=== PATIENT | female | born 1950 | race Caucasian/White ===

== ENCOUNTER 2018-11-07 08:11 | Inpatient (IN) ==
[2018-11-07] MEDS ORDERED: ONDANSETRON HCL/PF 2 MG/ML VIAL IV ONE ×2 (08:41→09:30)
--- NOTE | 2018-11-07 08:42 | ERNOTE ---
Abdominal HPI - General Chief Complaint: Abdominal Pain Time Seen by Provider: 11/07/18 08:28 Source: patient Exam Limitations: no limitations - Immun/Allergies/Home Medications Immunizatons: IMMUNIZATION HX Immunizations Up to Date Yes History of Influenza Vaccine No Hx Pneumococcal Vaccination No Allergies/Adverse Reactions: Allergies No Known Allergies Allergy (Verified 11/07/18 08:24) Home Medications: HOME MEDICATIONS Aspirin [Aspirin Enteric Coated] 81 mg PO DAILY 10/25/15 [Last Taken 03/17/18] Calcium Carbonate/Vitamin D3 [Calcium 600 + Vit D 400 Tablet] 1 ea PO DAILY 10/25/15 [Last Taken 03/17/18] Metoprolol Tartrate [Lopressor] 100 mg PO BID 10/25/15 [Last Taken 03/18/18] Multivitamins [Multivitamin Ki] 1 cap PO DAILY 10/25/15 [Last Taken 03/17/18] [place]-3 Fatty Acids [Fish Oil] 500 mg PO DAILY 10/25/15 [Last Taken 03/17/18] Pravastatin Sodium [Pravachol] 80 mg PO DAILY 10/25/15 [Last Taken 03/17/18] Ibuprofen [Motrin] 600 mg PO Q8H PRN #30 tab 03/18/18 [Last Taken Unknown] Prochlorperazine [Compazine] 25 mg RC Q6H PRN #12 supp.rect 06/12/18 [Last Taken Unknown] amlodipine 5 mg tablet 5 mg PO DAILY #90 tab 08/06/18 [Last Taken Unknown] duloxetine 30 mg capsule,delayed release 30 mg PO DAILY #90 cap 08/06/18 [Last Taken Unknown] irbesartan 300 mg tablet 300 mg PO DAILY #90 tab 08/06/18 [Last Taken Unknown] ranitidine 150 mg tablet 150 mg PO BID #180 tab 08/13/18 [Last Taken Unknown] - History of Present Illness Narrative: Patient woke up around 2 AM to urinate and also had a bowel movement after she got up to wash her hands she began to have a sharp pain in her lower abdomen and right lower quadrant. She has some nausea but has not vomited. She has had multiple issues with her abdomen including some bowel damage during laparoscopic cholecystectomy and subsequent short segment bowel resection. She has multiple hernias that are in their usual state without increased tenderness or firmness. Timing: constant Quality: sharpness Activities at Onset: none Modifying Factors - (Improves): Present: sitting up Modifying Factors - (Worsens): Present: lying down, movement Associated Symptoms: Absent: diarrhea-gross blood, vomiting Prior Abdominal Problems: Present: similar symptoms - with her bowel injury after jonathon Review of Systems - Review of Systems Constitutional: Absent: recent illness, fever, chills ENT: Absent: nose congestion, nasal drainage Respiratory: Absent: shortness of breath Cardiology: Absent: chest pain Gastrointestinal/Abdominal: Present: See HPI, nausea. Absent: vomiting, diarrhea, constipation Genitourinary: Absent: frequency, pain, dysuria Musculoskeletal: Absent: back pain, muscle pain Skin: Absent: rash Endocrine: Absent: excessive sweating Medical History (Updated 06/12/18 @ 17:42 by Reny Rosado NP) Fracture Onset Date: ~2012 right wrist fracture GERD (gastroesophageal reflux disease) Hypertension Joint pain Knee pain bilateral Thrombosed external hemorrhoid varicose veins Diverticulosis Onset Date: ~10/31/15 Breast cancer Onset Date: ~2009 chemo and radiation DVT (deep venous thrombosis) Onset Date: ~2009 due to Tamoxifen Surgical History: Surgical History (Updated 03/25/18 @ 13:16 by Elisa Mancia RN) History of hysteroscopy Onset Date: ~03/18/18 History of lymph node dissection of right axilla History of tubal ligation Onset Date: ~1993 H/O breast surgery Onset Date: ~11/03/09 double mastectomy H/O colonoscopy Onset Date: ~10/31/152003 & 10/30/18. 04-negative' 16-thrombosed external hemorrhoid, diverticulosis-recheck in 10 years History of appendectomy Onset Date: ~1964 History of exploratory laparotomy Onset Date: ~2013 due to nicked jejunum from lap jonathon History of skin graft Onset Date: ~02/2010 over right breast incision Hx laparoscopic cholecystectomy Onset Date: ~09/2013 Family History: Family History (Updated 02/28/18 @ 09:41 by Elisa Mancia RN) Mother Hypertension H/O heart bypass surgery Father Cancer kidney Social History: Preferred Language Korean Smoking Status Never smoker Have you smoked in the past 12 No months Abuse History No History of abuse Psych History Hx of Anxiety,Hx of Depression,Currently on Meds Alcohol Use none Drug Use none (Last Updated 04/15/18 @ 16:40 by Jayne Toscano DO) No Social History Section defined Physical Exam - Physical Exam General Appearance: Present: wd/wn, alert, mild distress Head Exam: Present: normal inspection, no evidence of injury Neck: Present: normal inspection, nontender, supple Respiratory: Present: no respiratory distress, no accessory muscle use Gastrointestinal/Abdominal: Present: normal bowel sounds, tenderness - Diffuse but more tender in the lower midline and right lower quadrant, distended - With multiple hernias that patient states are unchanged. Absent: guarding, rebound Back Exam: Present: normal inspection, normal range of motion, no vertebral tenderness Extremity Exam: Present: normal inspection, normal range of motion, no edema Neurological Exam: Present: alert, oriented, normal mood/affect, no motor/sensory deficits Skin Exam: Present: normal color, warm/dry Lymphatic Exam: Present: no adenopathy Progress - Results and Orders Patient's Lab Results:: I have reviewed the patient's lab results. Results and Orders: Laboratory Tests 11/07/18 11/07/18 08:51 08:51 WBC 8.6 Hgb 15.8 Plt Count 253 Sodium 141 Potassium 4.2 D BUN 19 Creatinine 0.76 BUN/Creatinine Ratio 25.0 H Random Glucose 139 H Total Bilirubin 1.1 AST 22 ALT 32 - Vital Signs Patient's Vital Signs:: I have reviewed the patient's vital signs. Vital Signs: Vital Signs 11/07/18 08:21 Temperature 36.7 C Pulse Rate 62 Respiratory Rate 16 Blood Pressure 188/93 H O2 Sat by Pulse Oximetry 97 - X-Ray X-Ray #1 X-Ray: abdomen Interpretation: Reviewed by me X-ray Comments: IMPRESSION: Abnormal bowel gas pattern suggestive of small bowel obstruction. Electronically signed by Carolyn Silva M.D. - Progress/Reassessment Chief Complaint: Abdominal Pain Progress:: Improved - Transfer of Care Physician Sign Out: Rohit Dalton Receiving Physician: Connie Domínguez Pending Results: CT/MRI results Expected Disposition: Admit Departure Clinical Impression: Small bowel obstruction - Departure Disposition: Still a patient Condition: Stable Referrals: Jayne Toscano DO [Primary Care Provider] -
[2018-11-07 09:00] LABS: Hematocrit 48.3 % (37.0-47.0); Hemoglobin 15.8 gm/dL (12.5-16.0); Mean Cell Volume 95.1 fl (78-100); Mean Corpuscular Hemoglobin 31.1 pg (27-31); Mean Corpuscular Hgb Conc 32.7 g/dl (32-36); Mean Platelet Volume 9.9 fl (8-12.5); Neutrophil # 6.4 K/mm3 (1.3-6.0); Neutrophil % 74.7 % (42-75.0); Platelet Count 253 K/mm3 (150-450); Red Blood Count 5.08 M/mm3 (4.2-5.4); Red Cell Distribution Width 12.8 % (11.5-14.0); White Blood Count 8.6 K/mm3 (4.0-10.5)
[2018-11-07] MEDS ORDERED: NALBUPHINE HCL 20 MG/ML AMPUL IV ONE (09:06)
[2018-11-07 09:13] LABS: Albumin * 4.1 gm/dl (3.4-5.0); Anion Gap 14.3 mmol/L (6.8-13.8); Bilirubin, Total 1.1 mg/dL (0.0-1.1); Ca. Corrected For Albumin 9.2 mg/dL (8.4-10.2); Calcium * 9.6 mg/dL (7.9-10.9); Carbon Dioxide 28.9 mmol/L (24-32.6); Potassium 4.2 mmol/L (3.4-4.6); Total Protein 8.1 gm/dL (6.2-8.2)
[2018-11-07] MEDS ORDERED: DIATRIZOATE MEGLUMINE, SODIUM 30 ML BTL PO ONE (10:21)
[2018-11-07] MEDS ORDERED: PROCHLORPERAZINE EDISYLATE 5 MG/ML VIAL IV ONE (10:29)
[2018-11-07] MEDS ORDERED: HYDROmorphone HCL 1 MG/ML DISP.SYRIN IV ONE (14:32)
[2018-11-07] MEDS ORDERED: ENOXAPARIN SODIUM 100 MG/ML SYRG SC ONE (14:47)
[2018-11-07] MEDS ORDERED: ENOXAPARIN SODIUM 30 MG/0.3 ML SYRG SC ONE (14:48)
[2018-11-07] MEDS ORDERED: POTASSIUM CHLORIDE 20 MEQ in NORMAL SALINE 1,000 ML IV SCH (15:00)
--- NOTE | 2018-11-07 15:40 | HP ---
Chief Complaint - Chief Complaint Date of Service: 11/07/18 Time of Service: 15:00 Chief Complaint: Abdominal pain x1 day History of Present Illness: This is a 68-year-old female with a past medical history of breast cancer status post bilateral mastectomy, chemo and radiation, diverticulosis, DVT, GERD, hypertension presents with a 1 day history of diffuse abdominal pain. She states that she woke up around 2:00 this morning to use the bathroom when she began to experience severe abdominal pain. She rates the pain as a 6-8 out of 10, sharp and constant. Pain is better with the IV Dilaudid she received in the ER. Denies fevers, chills or any other symptoms. CT abdomen pelvis was positive for proximal small bowel obstruction likely caused by her ventral hernia, multiple ventral hernias, possible right lower lobe pulmonary embolism. Medical History (Updated 11/07/18 @ 15:40 by Demetria Magana MD) Fracture Onset Date: ~2012 right wrist fracture GERD (gastroesophageal reflux disease) Hypertension Joint pain Knee pain bilateral Thrombosed external hemorrhoid varicose veins Diverticulosis Onset Date: ~10/31/15 Breast cancer Onset Date: ~2009 chemo and radiation DVT (deep venous thrombosis) Onset Date: ~2009 due to Tamoxifen Surgical History: Surgical History (Updated 11/07/18 @ 15:40 by Demetria Magana MD) History of hysteroscopy Onset Date: ~03/18/18 History of lymph node dissection of right axilla History of tubal ligation Onset Date: ~1993 H/O breast surgery Onset Date: ~11/03/09 double mastectomy H/O colonoscopy Onset Date: ~10/31/152003 & 10/30/18. 04-negative' 16-thrombosed external hemorrhoid, diverticulosis-recheck in 10 years History of appendectomy Onset Date: ~1964 History of exploratory laparotomy Onset Date: ~2013 due to nicked jejunum from lap jonathon History of skin graft Onset Date: ~02/2010 over right breast incision Hx laparoscopic cholecystectomy Onset Date: ~09/2013 Family History: Family History (Updated 02/28/18 @ 09:41 by Elisa Mancia RN) Mother Hypertension H/O heart bypass surgery Father Cancer kidney Social History: Preferred Language Upper Sorbian Smoking Status Never smoker Have you smoked in the past 12 No months Abuse History No History of abuse Psych History Hx of Anxiety,Hx of Depression,Currently on Meds Alcohol Use none Drug Use none (Last Updated 04/15/18 @ 16:40 by Jayne Toscano DO) No Social History Section defined Review Of Systems (GEN) - Review of Systems Generalized/Overall Review: Absent: Chills, Fever Respiratory: Absent: Shortness of Breath Cardiac: Absent: Chest Pain Abdominal: Present: Abdominal Pain Misc: All systems neg except as marked Immunizations: IMMUNIZATION HX Immunizations Up to Date Yes History of Influenza Vaccine No Hx Pneumococcal Vaccination No Allergies/Adverse Reactions: Allergies Allergy/AdvReac Type Severity Reaction Status Date / Time No Known Allergies Allergy Verified 11/07/18 08:24 Home Medications: HOME MEDICATIONS Aspirin [Aspirin Enteric Coated] 81 mg PO DAILY 10/25/15 [Last Taken 03/17/18] Calcium Carbonate/Vitamin D3 [Calcium 600 + Vit D 400 Tablet] 1 ea PO DAILY 10/25/15 [Last Taken 03/17/18] Multivitamins [Multivitamin Ki] 1 cap PO DAILY 10/25/15 [Last Taken 03/17/18] [place]-3 Fatty Acids [Fish Oil] 500 mg PO DAILY 10/25/15 [Last Taken 03/17/18] Ibuprofen [Motrin] 600 mg PO Q8H PRN #30 tab 03/18/18 [Last Taken Unknown] Prochlorperazine [Compazine] 25 mg RC Q6H PRN #12 supp.rect 06/12/18 [Last Taken Unknown] amlodipine 5 mg tablet 5 mg PO DAILY #90 tab 11/07/18 [Last Taken Unknown] duloxetine 30 mg capsule,delayed release 30 mg PO DAILY #90 cap 11/07/18 [Last Taken Unknown] irbesartan 300 mg tablet 300 mg PO DAILY #90 tab 11/07/18 [Last Taken Unknown] metoprolol tartrate 100 mg tablet 100 mg PO BID #180 tab 11/07/18 [Last Taken Unknown] pravastatin 80 mg tablet 80 mg PO DAILY #90 tab 11/07/18 [Last Taken Unknown] ranitidine 150 mg tablet 150 mg PO BID #180 tab 11/07/18 [Last Taken Unknown] Exam - Exam Vital Signs: Vital Signs - Last Taken Temp 36.7 C 11/07/18 08:21 Pulse 53 L 11/07/18 12:45 Resp 20 11/07/18 12:45 BP 165/70 H 11/07/18 12:45 Pulse Ox 95 11/07/18 12:45 Constitutional: Present: Alert, Oriented x3, Cooperative, Well developed, Well nourished, Elderly, Obese ENT Exam: Present: hearing grossly normal, moist mucous membranes Eye Exam: bilateral eye: PERRL Neck: Present: supple, trachea midline. Absent: lymphadenopathy (R), lymphadenopathy (L) Back Exam: Present: normal inspection, no CVA tenderness Respiratory: Present: lungs clear, no accessory muscle use, No wheezing. Absent: crackles, rhonchi Cardiovascular/Chest: Present: normal peripheral pulses, regular rate, rhythm, no murmur Peripheral Pulses: dorsalis-pedis (R): 1+, dorsalis-pedis (L): 1+ Abdomen: Present: soft, nontender, hypoactive Extremity: Present: pedal edema - Bilateral 1+ pitting Skin Exam: Present: normal color, warm/dry Neurologic: Present: alert, normal mood/affect Appearance: Present: appropriate appearance Eye contact: Present: cooperative Thoughts: Present: normal thought pattern, normal mood /affect Diagnostic Studies: Abnormal Lab Results 11/07/18 11/07/18 Range/Units 08:51 08:51 Hct 48.3 H (37.0-47.0) % MCH 31.1 H (27-31) pg Immature Gran % (Auto) 0.70 H (0.001-0.429) % Immature Gran # (Auto) 0.06 H (0.000-0.0310) K/mm3 Lymphocytes % 13.1 L (20-51) % Neutrophils # 6.4 H (1.3-6.0) K/mm3 Lymphocytes # 1.12 L (1.5-3.5) k/mm3 Anion Gap 14.3 H (6.8-13.8) mmol/L BUN/Creatinine Ratio 25.0 H (9.0-21.6) Random Glucose 139 H (70-110) mg/dL Laboratory Results WBC 8.6 K/mm3 (4.0-10.5) 11/07/18 08:51 RBC 5.08 M/mm3 (4.2-5.4) 11/07/18 08:51 Hgb 15.8 gm/dL (12.5-16.0) 11/07/18 08:51 Hct 48.3 % (37.0-47.0) H 11/07/18 08:51 MCV 95.1 fl (78-100) 11/07/18 08:51 MCH 31.1 pg (27-31) H 11/07/18 08:51 MCHC 32.7 g/dl (32-36) 11/07/18 08:51 RDW 12.8 % (11.5-14.0) 11/07/18 08:51 Plt Count 253 K/mm3 (150-450) 11/07/18 08:51 MPV 9.9 fl (8-12.5) 11/07/18 08:51 Immature Gran % (Auto) 0.70 % (0.001-0.429) H 11/07/18 08:51 Immature Gran # (Auto) 0.06 K/mm3 (0.000-0.0310) H 11/07/18 08:51 74.7 % (42-75.0) 11/07/18 08:51 13.1 % (20-51) L 11/07/18 08:51 8.7 % (0.0-9) 11/07/18 08:51 2.1 % (0.0-3.0) 11/07/18 08:51 0.7 % (0.0-1.0) 11/07/18 08:51 Nucleated RBC % 0.0 k/mm3 (0-1) 11/07/18 08:51 6.4 K/mm3 (1.3-6.0) H 11/07/18 08:51 1.12 k/mm3 (1.5-3.5) L 11/07/18 08:51 0.7 k/mm3 (0.0-1.0) 11/07/18 08:51 0.2 k/mm3 (0.0-0.7) 11/07/18 08:51 Absolute Basophils 0.1 k/mm3 (0.0-0.1) 11/07/18 08:51 Sodium 141 mmol/L (132-142) 11/07/18 08:51 142 mmol/L (130-142) 11/07/18 08:51 Potassium 4.2 mmol/L (3.4-4.6) D 11/07/18 08:51 Chloride 102 mmol/L (97-106) 11/07/18 08:51 Carbon Dioxide 28.9 mmol/L (24-32.6) 11/07/18 08:51 14.3 mmol/L (6.8-13.8) H 11/07/18 08:51 BUN 19 mg/dL (3-23) 11/07/18 08:51 0.76 mg/dL (0.4-1.4) 11/07/18 08:51 Est GFR (Non-Af Amer) 80 mL/min (60-130) 11/07/18 08:51 25.0 (9.0-21.6) H 11/07/18 08:51 139 mg/dL (70-110) H 11/07/18 08:51 Calcium 9.6 mg/dL (7.9-10.9) 11/07/18 08:51 Calcium Adj for Albumin 9.2 mg/dL (8.4-10.2) 11/07/18 08:51 1.1 mg/dL (0.0-1.1) 11/07/18 08:51 AST 22 U/L (0-48) 11/07/18 08:51 ALT 32 U/L (19-67) 11/07/18 08:51 91 U/L (50-170) 11/07/18 08:51 8.1 gm/dL (6.2-8.2) 11/07/18 08:51 4.1 gm/dl (3.4-5.0) 11/07/18 08:51 Amylase 37 U/L (25-115) 11/07/18 08:51 116 U/L (73-393) 11/07/18 08:51 Assessment/Plan - Narrative Narrative: This is a 68-year-old female with a past medical history of breast cancer status post bilateral mastectomy, chemo and radiation, diverticulosis, DVT, GERD, hypertension presents with a 1 day history of diffuse abdominal pain. She states that she woke up around 2:00 this morning to use the bathroom when she began to experience severe abdominal pain. She rates the pain as a 6-8 out of 10, sharp and constant. Pain is better with the IV Dilaudid she received in the ER. Denies fevers, chills or any other symptoms. CT abdomen pelvis was positive for proximal small bowel obstruction likely caused by her ventral hernia, multiple ventral hernias, possible right lower lobe pulmonary embolism. She is being admitted for further observation and monitoring. Surgery has been consulted. She received 1 dose of Lovenox 160 mg in the emergency department. NG tube is in place. - Assessment/Plan (1) Small bowel obstruction Assessment: Surgery has been consulted. Continue with NG tube and keep n.p.o. Problem: Acute (2) Abnormal computed tomography of abdomen and pelvis Assessment: Possible pulmonary will order CT angiogram tomorrow she has radiation contrast with a CT abdomen pelvis. She is status post Lovenox 160 mg x 1 dose today. Problem: Acute (3) Hypertension Problem: Acute Qualifiers: Hypertension type: essential hypertension Qualified Code(s): I10 - Essential (primary) hypertension (4) GERD (gastroesophageal reflux disease) Problem: Acute
--- NOTE | 2018-11-07 16:18 | CONS ---
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 She has multiple chronic hernias which are reducible. She is having abdominal pain. Her last bowel movement was at [address] scan showed a possible PE. She has received a therapeutic dose of Lovenox. She is having a repeat CTA tomorrow. Her abdominal pain is periumbilical. The CT scan showed there was no bowel compromise, and possibly the hernia to the left of the umbilicus was causing the obstruction. Timing/Duration: 24 hours Severity: moderate Modifying Factors - (Worsens): Reports: eating Modifying Factors - (Improves): Reports: other - HEENT medication Associated Symptoms: loss of appetite, nausea Allergies/Adverse Reactions: Allergies No Known Allergies Allergy (Verified 11/07/18 16:21) Home Medications: Home Medications Medication Instructions Recorded Last Taken Aspirin [Aspirin Enteric Coated] 81 mg PO DAILY 10/25/15 11/07/18 08:00 Calcium Carbonate/Vitamin D3 1 ea PO DAILY 10/25/15 11/07/18 08:00 [Calcium 600 + Vit D 400 Tablet] Multivitamins [Multivitamin Ki] 1 cap PO DAILY 10/25/15 11/07/18 08:00 [place]-3 Fatty Acids [Fish Oil] 1,200 mg PO DAILY 10/25/15 11/07/18 08:00 Ibuprofen [Motrin] 600 mg PO Q8H PRN #30 tab 03/18/18 Unknown Prochlorperazine [Compazine] 25 mg RC Q6H PRN #12 supp.rect 06/12/18 Unknown Pravastatin Sodium [Pravachol] 80 mg PO HS 11/07/18 11/06/18 21:00 amlodipine 5 mg tablet 5 mg PO DAILY #90 tab 11/07/18 11/07/18 08:00 duloxetine 30 mg capsule,delayed 30 mg PO DAILY #90 cap 11/07/18 11/07/18 08:00 release irbesartan 300 mg tablet 300 mg PO DAILY #90 tab 11/07/18 11/07/18 08:00 metoprolol tartrate 100 mg tablet 100 mg PO BID #180 tab 11/07/18 11/07/18 08:00 ranitidine 150 mg tablet 150 mg PO BID #180 tab 11/07/18 11/07/18 08:00 Procedures Inspection of Lower Intestinal Tract, Via Natural or Artificial Opening Endoscopic (10/31/15) Exploratory laparotomy Cholecystectomy Skin graft Medications - Medications Current Medications: Current Medications Potassium Chloride 20 meq/ (Sodium Chloride) 1,010 mls @ 30 mls/hr IV .Q24H LANNY Stop: 12/07/18 15:01 Last Admin: 11/07/18 15:31 Dose: 30 mls/hr Documented by: Review of Systems - Review of Systems Generalized/Overall Review: Present: Malaise EENTM: Present: No Symptoms Reported Respiratory: Present: No Symptoms Reported Cardiac: Present: No Symptoms Reported Abdominal: Present: Nausea, Abdominal Pain Genitourinary: Present: No Symptoms Reported Musculoskeletal: Present: No Symptoms Reported Neurological: Present: No Symptoms Reported Skin: Present: No Symptoms Reported Endocrine: Present: No Symptoms Reported Physical Examination - Exam Vital Signs: Vital Signs - Last Taken Temp 36.7 C 11/07/18 08:21 Pulse 58 L 11/07/18 14:30 Resp 14 11/07/18 14:30 BP 171/79 H 11/07/18 14:30 Pulse Ox 95 11/07/18 14:30 O2 Oxygen Delivery Method Room Air Constitutional: Present: Alert, Oriented x3, Cooperative ENT Exam: Present: hearing grossly normal Neck: Present: supple Respiratory: Present: lungs clear, normal breath sounds, no respiratory distress Cardiovascular/Chest: Present: regular rate, rhythm Abdomen: Present: Normal bowel sounds, soft, nondistended, obese, tender, hernia - Hernias were all reducible and no erythema or skin changes /Rectal: Present: Exam deferred Extremity: Present: normal range of motion Skin Exam: Present: normal color Neurologic: Present: sand polisher II-XII nml as tested Appearance: Present: appropriate appearance, appropriate insight Eye contact: Present: cooperative, good eye contact Thoughts: Present: normal thought pattern - Results and Findings: Lab/Microbiology results last 24 hrs: Abnormal/Pending Laboratory Last 24 HRS 11/07/18 11/07/18 08:51 08:51 Hct 48.3 H MCH 31.1 H Immature Gran % (Auto) 0.70 H Immature Gran # (Auto) 0.06 H Lymphocytes % 13.1 L Neutrophils # 6.4 H Lymphocytes # 1.12 L Anion Gap 14.3 H BUN/Creatinine Ratio 25.0 H Random Glucose 139 H - Assessments/Findings (1) Abnormal computed tomography of abdomen and pelvis Problem: Acute (2) GERD (gastroesophageal reflux disease) Problem: Acute (3) Hypertension Problem: Acute Qualifiers: Hypertension type: essential hypertension Qualified Code(s): I10 - Essential (primary) hypertension (4) Small bowel obstruction Problem: Acute (5) Abdominal wall hernia Problem: Acute (6) Vomiting Problem: Acute Qualifiers: Vomiting type: unspecified Vomiting Intractability: non-intractable Nausea presence: with nausea Qualified Code(s): R11.2 - Nausea with vomiting, unspecified Plan - Plan Plan: Patient's hernia that was to the left of the umbilicus was reduced. This is the hernia that was concerning for obstruction on the CT scan. The patient has received 160 of Lovenox, she could not undergo surgery. I do not think she needs surgery at this time. She is also a poor surgical candidate with a possible PE. She just had a bowel movement this morning at 2 AM. She likely has chronic obstructions which resolved themselves based on her chronic hernias.
[2018-11-07] MEDS: NORMAL SALINE 1,000 ML IV PRN (17:52)
[2018-11-07 20:41] LABS: Urine Bilirubin Negative (NEGATIVE); Urine Ketone Negative (NEGATIVE); Urine Nitrite Negative (NEGATIVE); Urine Protein 15 mg/dL (NEGATIVE); Urine Urobilinogen Normal (NORMAL)
[2018-11-07] MEDS: HYDROmorphone HCL 1 MG/ML DISP.SYRIN IV PRN (20:51)
[2018-11-07 20:52] LABS: Urine Appearance Slightly Cloudy (CLEAR); Urine Bacteria 1+; Urine Blood 5 /ul (NEGATIVE); Urine Color Yellow; Urine RBC None Seen /hpf (0-5); Urine WBC None Seen /hpf (0-5)
[2018-11-08] MEDS: ONDANSETRON HCL/PF 2 MG/ML VIAL IV PRN ×3 (02:00→22:25)
[2018-11-08] MEDS: HYDROmorphone HCL 1 MG/ML DISP.SYRIN IV PRN ×5 (02:04→22:29)
[2018-11-08 06:01] LABS: Hematocrit 44.1 % (37.0-47.0); Hemoglobin 14.5 gm/dL (12.5-16.0); Mean Cell Volume 95.7 fl (78-100); Mean Corpuscular Hemoglobin 31.5 pg (27-31); Mean Corpuscular Hgb Conc 32.9 g/dl (32-36); Mean Platelet Volume 9.8 fl (8-12.5); Neutrophil # 11.6 K/mm3 (1.3-6.0); Neutrophil % 84.3 % (42-75.0); Platelet Count 225 K/mm3 (150-450); Red Blood Count 4.61 M/mm3 (4.2-5.4); Red Cell Distribution Width 12.9 % (11.5-14.0); White Blood Count 13.8 K/mm3 (4.0-10.5)
[2018-11-08 06:14] LABS: Albumin * 3.4 gm/dl (3.4-5.0); Anion Gap 12.4 mmol/L (6.8-13.8); BUN/Creatinine Ratio 31.6 (9.0-21.6); Bilirubin, Total 1.7 mg/dL (0.0-1.1); Ca. Corrected For Albumin 9.4 mg/dL (8.4-10.2); Calcium * 9.2 mg/dL (7.9-10.9); Carbon Dioxide 30.8 mmol/L (24-32.6); Potassium 4.2 mmol/L (3.4-4.6); Total Protein 6.7 gm/dL (6.2-8.2)
[2018-11-08] MEDS ORDERED: ENOXAPARIN SODIUM 100 MG/ML SYRG SC SCH ×2 (09:00→15:52)
--- NOTE | 2018-11-08 09:18 | PN ---
Dictated Progress Note - Date and Time Seen: Date: 11/08/18 Time: 09:15 - Progress Note Narrative: Pt still having emesis overnoc, NG not working well. Was now flushed and working better. Abd pain better after dilaudid, but overall feels the same. HavHa having flatus, no bm since yesterday. Vital Signs - Last Taken Temp 36.7 C 11/08/18 06:00 Pulse 74 11/08/18 06:00 Resp 16 11/08/18 06:00 BP 157/69 H 11/08/18 06:00 Pulse Ox 93 11/08/18 06:00 Abnormal/Pending Laboratory Last 24 HRS 11/08/18 11/08/18 11/07/18 05:55 05:55 20:38 WBC 13.8 H D Hct MCH 31.5 H Immature Gran % (Auto) Immature Gran # (Auto) 0.04 H Neutrophils % 84.3 H Lymphocytes % 7.8 L Neutrophils # 11.6 H Lymphocytes # 1.07 L BUN 25 H BUN/Creatinine Ratio 31.6 H Random Glucose 148 H Total Bilirubin 1.7 H Urine Protein 15 H Urine Blood 5 H Ur Epithelial Cells 5-10 H Urine Bacteria 1+ H 11/07/18 08:51 WBC Hct 48.3 H MCH 31.1 H Immature Gran % (Auto) 0.70 H Immature Gran # (Auto) 0.06 H Neutrophils % Lymphocytes % 13.1 L Neutrophils # 6.4 H Lymphocytes # 1.12 L BUN BUN/Creatinine Ratio Random Glucose Total Bilirubin Urine Protein Urine Blood Ur Epithelial Cells Urine Bacteria NAD non labored respirations abd, multiple hernias, reducible, no erythema, reduced hernia to left of umbilicus, and had large return of NG contents IMP: pSBO mult chronic hernias possible PE anticoagulated Plan: await CTA Cont NG until N/V resolves poor surgical candidate
--- NOTE | 2018-11-08 11:33 | PN ---
Subjective - Date and Time Seen Date: 11/08/18 Time: 09:00 Subjective Narrative: Feels better. Pain well controlled with Dilaudid. Pain currently is a 3 out of 10. She had vomiting overnight that resolved with Zofran. Objective - Review of Systems Generalized/Overall Review: Denies: Fever Respiratory: Denies: Shortness of Breath Cardiac: Denies: Chest Pain Abdominal: Reports: Nausea, Vomiting, Abdominal Pain Misc: All systems neg except as marked - Vitals Vitals: Last Vital Signs Temp 36.4 C 11/08/18 10:00 Pulse 77 11/08/18 10:00 Resp 18 11/08/18 10:00 BP 171/78 H 11/08/18 10:00 Pulse Ox 93 11/08/18 10:00 - Abnormal Lab Findings Abnormal Lab Findings: Abnormal Lab Results 11/07/18 11/08/18 11/08/18 Range/Units 20:38 05:55 05:55 WBC 13.8 H D (4.0-10.5) K/mm3 MCH 31.5 H (27-31) pg Immature Gran # (Auto) 0.04 H (0.000-0.0310) K/mm3 Neutrophils % 84.3 H (42-75.0) % Lymphocytes % 7.8 L (20-51) % Neutrophils # 11.6 H (1.3-6.0) K/mm3 Lymphocytes # 1.07 L (1.5-3.5) k/mm3 BUN 25 H (3-23) mg/dL BUN/Creatinine Ratio 31.6 H (9.0-21.6) Random Glucose 148 H (70-110) mg/dL Total Bilirubin 1.7 H (0.0-1.1) mg/dL Urine Protein 15 H (NEGATIVE) mg/dL Urine Blood 5 H (NEGATIVE) /ul Ur Epithelial Cells 5-10 H (0-5) /hpf Urine Bacteria 1+ H (NONE) - Exam Constitutional: Present: Alert, Oriented x3, Cooperative, Well developed, Well nourished, No distress ENT Exam: Present: hearing grossly normal Neck: Present: normal inspection, trachea midline. Absent: lymphadenopathy (R), lymphadenopathy (L) Respiratory: Present: lungs clear, normal breath sounds, no respiratory distress, no accessory muscle use, No wheezing. Absent: crackles, rhonchi Cardiovascular/Chest: Present: normal peripheral pulses, regular rate, rhythm, no murmur Abdomen: Present: Normal bowel sounds, soft, nontender Extremity: Present: normal inspection, no pedal edema Skin Exam: Present: normal color, warm/dry Neurologic: Present: alert, normal mood/affect Appearance: Present: appropriate appearance, appropriate insight Eye contact: Present: cooperative, good eye contact Thoughts: Present: normal thought pattern, normal mood /affect Assessment/Plan Plan Narrative: This is a 68-year-old female with a past medical history of breast cancer status post bilateral mastectomy, chemo and radiation, diverticulosis, DVT, GERD, hyper tension presents with a 1 day history of diffuse abdominal pain. CT abdomen pelvis was positive for proximal small bowel obstruction likely caused by her ventral hernia, multiple ventral hernias, possible right lower lobe pulmonary embolism. She is being admitted for further observation and monitoring. Surgery is on board. She received 1 dose of Lovenox 160 mg in the emergency department. NG tube is in place. - Problems/Diagnosis (1) Small bowel obstruction Problem: Acute Narrative: Likely secondary to her ventral hernia. Continue with NG tube until nausea and vomiting resolved per surgery's recommendations. Surgery states she is a poor surgical candidate due to her potential PE and the fact that she has already received anticoagulation. (2) Abnormal computed tomography of abdomen and pelvis Problem: Acute Narrative: He may have a pulmonary embolism. She is scheduled for a CT angio chest today continue anticoagulation with Lovenox for now. (3) Hypertension Problem: Chronic Qualifiers: Hypertension type: essential hypertension Qualified Code(s): I10 - Essential (primary) hypertension Narrative: Blood pressure is elevated. Will consider starting enalapril IV until she can tolerate oral medications (4) GERD (gastroesophageal reflux disease) Problem: Chronic
[2018-11-08] MEDS: ENALAPRILAT DIHYDRATE 1.25 MG/ML VIAL IV SCH ×3 (12:09→23:46)
[2018-11-08] MEDS: NORMAL SALINE 1,000 ML IV PRN (14:33)
[2018-11-08] MEDS ORDERED: ENOXAPARIN SODIUM 60 MG/0.6 ML SYRG SC SCH (21:00)
[2018-11-09] MEDS: HYDROmorphone HCL 1 MG/ML DISP.SYRIN IV PRN ×4 (03:18→22:43)
[2018-11-09] MEDS: ONDANSETRON HCL/PF 2 MG/ML VIAL IV PRN (04:27)
[2018-11-09] MEDS: ENALAPRILAT DIHYDRATE 1.25 MG/ML VIAL IV SCH ×3 (05:31→16:58)
[2018-11-09 06:17] LABS: Hematocrit 44.2 % (37.0-47.0); Hemoglobin 14.3 gm/dL (12.5-16.0); Mean Cell Volume 96.9 fl (78-100); Mean Corpuscular Hemoglobin 31.4 pg (27-31); Mean Corpuscular Hgb Conc 32.4 g/dl (32-36); Mean Platelet Volume 10.5 fl (8-12.5); Neutrophil # 7.6 K/mm3 (1.3-6.0); Neutrophil % 79.3 % (42-75.0); Platelet Count 172 K/mm3 (150-450); Red Blood Count 4.56 M/mm3 (4.2-5.4); Red Cell Distribution Width 13.2 % (11.5-14.0); White Blood Count 9.6 K/mm3 (4.0-10.5)
[2018-11-09 06:37] LABS: Albumin * 3.3 gm/dl (3.4-5.0); Anion Gap 12.5 mmol/L (6.8-13.8); BUN/Creatinine Ratio 34.1 (9.0-21.6); Bilirubin, Total 1.7 mg/dL (0.0-1.1); Ca. Corrected For Albumin 8.9 mg/dL (8.4-10.2); Calcium * 8.7 mg/dL (7.9-10.9); Carbon Dioxide 31.7 mmol/L (24-32.6); Potassium 4.2 mmol/L (3.4-4.6); Total Protein 6.2 gm/dL (6.2-8.2)
[2018-11-09] MEDS: ENOXAPARIN SODIUM 30 MG, ENOXAPARIN SODIUM 80 MG SC SCH ×4 (08:19→20:50)
[2018-11-09] MEDS: DEXTROSE 5%-0.5 NORMAL SALINE 1,000 ML IV PRN (09:47)
--- NOTE | 2018-11-09 10:03 | PN ---
Dictated Progress Note - Date and Time Seen: Date: 11/09/18 Time: 10:02 - Progress Note Narrative: Abd pain remains unchanged. Having flatus, no bm. Still having emesis around NG Vital Signs - Last Taken Temp 37.1 C 11/09/18 06:00 Pulse 109 H 11/09/18 06:00 Resp 20 11/09/18 06:00 BP 132/77 11/09/18 06:00 Pulse Ox 93 11/09/18 06:00 Abnormal/Pending Laboratory Last 24 HRS 11/09/18 11/09/18 05:55 05:55 MCH 31.4 H Immature Gran % (Auto) 0.50 H Immature Gran # (Auto) 0.05 H Neutrophils % 79.3 H Lymphocytes % 9.8 L Monocytes % 10.1 H Neutrophils # 7.6 H Lymphocytes # 0.94 L Sodium 145 H Plasma Sodium 146 H BUN 28 H BUN/Creatinine Ratio 34.1 H Random Glucose 150 H Total Bilirubin 1.7 H Albumin 3.3 L NAD non labored abd soft, hernia reduced, min TTP no skin changes IMP: pSBO PE mult chronic hernias Plan: added protonix cont NG AXR in am ice chips ok prn if needs surgery would tx to [facility] given PE would need multidisciplinary team
[2018-11-09] MEDS: PANTOPRAZOLE SODIUM 40 MG in NORMAL SALINE 100 ML IV SCH (10:28)
--- NOTE | 2018-11-09 14:08 | PN ---
Subjective - Date and Time Seen Date: 11/09/18 Time: 10:30 Subjective Narrative: She continues to complain of diffuse abdominal pain. At best pain is a 3 out of 10 with Dilaudid, at worst pain is 8 out of 10 when Dilaudid is wearing off. She declined a stronger dose of Dilaudid at this time. She does continue to pass a little bit of gas. She denies shortness of breath or chest pain. She did report vomiting a small amount of liquid. Objective - Review of Systems Generalized/Overall Review: Denies: Fever Respiratory: Denies: Shortness of Breath Cardiac: Denies: Chest Pain Abdominal: Reports: Vomiting, Abdominal Pain Misc: All systems neg except as marked - Vitals Vitals: Last Vital Signs Temp 36.7 C 11/09/18 10:00 Pulse 109 H 11/09/18 11:58 Resp 20 11/09/18 10:00 BP 155/72 H 11/09/18 11:58 Pulse Ox 96 11/09/18 10:00 - Abnormal Lab Findings Abnormal Lab Findings: Abnormal Lab Results 11/09/18 11/09/18 Range/Units 05:55 05:55 MCH 31.4 H (27-31) pg Immature Gran % (Auto) 0.50 H (0.001-0.429) % Immature Gran # (Auto) 0.05 H (0.000-0.0310) K/mm3 Neutrophils % 79.3 H (42-75.0) % Lymphocytes % 9.8 L (20-51) % Monocytes % 10.1 H (0.0-9) % Neutrophils # 7.6 H (1.3-6.0) K/mm3 Lymphocytes # 0.94 L (1.5-3.5) k/mm3 Sodium 145 H (132-142) mmol/L Plasma Sodium 146 H (130-142) mmol/L BUN 28 H (3-23) mg/dL BUN/Creatinine Ratio 34.1 H (9.0-21.6) Random Glucose 150 H (70-110) mg/dL Total Bilirubin 1.7 H (0.0-1.1) mg/dL Albumin 3.3 L (3.4-5.0) gm/dl - Exam Constitutional: Present: Alert, Cooperative, Well developed, Well nourished, No distress ENT Exam: Present: hearing grossly normal Neck: Present: supple, trachea midline. Absent: lymphadenopathy (R), lymphadenopathy (L) Respiratory: Present: lungs clear, normal breath sounds, no accessory muscle use, No wheezing. Absent: crackles, rhonchi Cardiovascular/Chest: Present: normal peripheral pulses, regular rate, rhythm, no edema, no murmur Abdomen: Present: Normal bowel sounds, soft, tender - Mildly tender to deep palpation, diffuse Extremity: Present: no pedal edema Skin Exam: Present: normal color, warm/dry Neurologic: Present: alert, normal mood/affect Appearance: Present: appropriate appearance, appropriate insight Eye contact: Present: cooperative, good eye contact Thoughts: Present: normal thought pattern, normal mood /affect Assessment/Plan Plan Narrative: This is a 68-year-old female with a past medical history of breast cancer status post bilateral mastectomy, chemo and radiation, diverticulosis, DVT, GERD, hypertension presents with a 1 day history of diffuse abdominal pain. CT abdomen pelvis was positive for proximal small bowel obstruction likely caused by her ventral hernia, multiple ventral hernias, possible right lower lobe pul monary embolism. She had a CT angio on November 08, 2018 that showed segmental and subsegmental right lower lobe PE, and suspected subsegmental left lower lobe PE. She is currently on Lovenox twice daily. Dr. Mcclain from general surgery is on board for comanagement. If the patient requires surgical intervention, Dr. Mcclain states she would need to be transferred to the [facility] in order to have a multidisciplinary team manage her because of her pulmonary embolism. - Problems/Diagnosis (1) Pulmonary embolism Problem: Acute Qualifiers: Pulmonary embolism type: other Chronicity: acute Narrative: Continue with Lovenox 1 mg/kg twice daily. (2) Small bowel obstruction Problem: Acute Narrative: Continue with NG tube, n.p.o. and pain management. (3) Hypertension Problem: Chronic Qualifiers: Hypertension type: essential hypertension Qualified Code(s): I10 - Essential (primary) hypertension (4) GERD (gastroesophageal reflux disease) Problem: Chronic Narrative: She is currently on Protonix. (5) Hypernatremia Problem: Acute Narrative: Fluids switch to D5 half-normal saline.
[2018-11-10] MEDS: ENALAPRILAT DIHYDRATE 1.25 MG/ML VIAL IV SCH ×5 (00:06→23:51)
[2018-11-10] MEDS: DEXTROSE 5%-0.5 NORMAL SALINE 1,000 ML IV PRN (05:46)
[2018-11-10 06:32] LABS: Hematocrit 45.3 % (37.0-47.0); Hemoglobin 14.4 gm/dL (12.5-16.0); Mean Cell Volume 97.6 fl (78-100); Mean Corpuscular Hgb Conc 31.8 g/dl (32-36); Mean Platelet Volume 10.1 fl (8-12.5); Neutrophil # 5.7 K/mm3 (1.3-6.0); Neutrophil % 68.9 % (42-75.0); Platelet Count 217 K/mm3 (150-450); Red Blood Count 4.64 M/mm3 (4.2-5.4); Red Cell Distribution Width 13.3 % (11.5-14.0); White Blood Count 8.3 K/mm3 (4.0-10.5)
[2018-11-10 06:49] LABS: Albumin * 3.2 gm/dl (3.4-5.0); Anion Gap 12.7 mmol/L (6.8-13.8); BUN/Creatinine Ratio 27.4 (9.0-21.6); Bilirubin, Total 2.1 mg/dL (0.0-1.1); Calcium * 8.7 mg/dL (7.9-10.9); Carbon Dioxide 29.8 mmol/L (24-32.6); Potassium 3.5 mmol/L (3.4-4.6); Total Protein 6.6 gm/dL (6.2-8.2)
[2018-11-10] MEDS: ENOXAPARIN SODIUM 30 MG, ENOXAPARIN SODIUM 80 MG SC SCH ×4 (09:24→20:21)
[2018-11-10] MEDS: PANTOPRAZOLE SODIUM 40 MG in NORMAL SALINE 100 ML IV SCH (09:26)
--- NOTE | 2018-11-10 09:46 | PN ---
Dictated Progress Note - Date and Time Seen: Date: 11/10/18 Time: 09:45 - Progress Note Narrative: Feeling better today, having flatus. No N/V. No BM. Abd pain improved. Vital Signs - Last Taken Temp 36.5 C 11/10/18 06:42 Pulse 120 H 11/10/18 06:42 Resp 16 11/10/18 06:42 BP 152/80 H 11/10/18 06:42 Pulse Ox 97 11/10/18 06:42 Abnormal/Pending Laboratory Last 24 HRS 11/10/18 11/10/18 05:53 05:53 MCHC 31.8 L Immature Gran % (Auto) 0.80 H Immature Gran # (Auto) 0.07 H Lymphocytes % 17.7 L Monocytes % 11.1 H Lymphocytes # 1.47 L Sodium 143 H Plasma Sodium 144 H BUN/Creatinine Ratio 27.4 H Random Glucose 137 H Total Bilirubin 2.1 H Albumin 3.2 L NAD non labored abd soft, non distended, non tender Imp: mult chronic hernias pSBO resolving PE Plan: clamp NG clears dc ng if no n/v in 4 hours AXR shows improvement
--- NOTE | 2018-11-10 11:27 | PN ---
Subjective - Date and Time Seen Date: 11/10/18 Time: 11:15 Subjective Narrative: She states she feels much better today. States pain is a 1 out of 10 located in the left abdomen. She has not used the Dilaudid since 10 PM last night. She is tolerating a clear liquid diet with no worsening pain. She is looking forward to possibly go home tomorrow. Denies nausea or vomiting. Objective - Review of Systems Generalized/Overall Review: Denies: Fever Respiratory: Denies: Shortness of Breath Cardiac: Denies: Chest Pain Abdominal: Reports: Abdominal Pain - Left lower quadrant. Denies: Nausea, Vomiting Misc: All systems neg except as marked - Vitals Vitals: Last Vital Signs Temp 37.1 C 11/10/18 10:21 Pulse 117 H 11/10/18 10:21 Resp 16 11/10/18 10:21 BP 133/82 11/10/18 10:21 Pulse Ox 96 11/10/18 10:21 - Abnormal Lab Findings Abnormal Lab Findings: Abnormal Lab Results 11/10/18 11/10/18 Range/Units 05:53 05:53 MCHC 31.8 L (32-36) g/dl Immature Gran % (Auto) 0.80 H (0.001-0.429) % Immature Gran # (Auto) 0.07 H (0.000-0.0310) K/mm3 Lymphocytes % 17.7 L (20-51) % Monocytes % 11.1 H (0.0-9) % Lymphocytes # 1.47 L (1.5-3.5) k/mm3 Sodium 143 H (132-142) mmol/L Plasma Sodium 144 H (130-142) mmol/L BUN/Creatinine Ratio 27.4 H (9.0-21.6) Random Glucose 137 H (70-110) mg/dL Total Bilirubin 2.1 H (0.0-1.1) mg/dL Albumin 3.2 L (3.4-5.0) gm/dl - Exam Constitutional: Present: Alert, Oriented x3, Cooperative, Well developed, Well nourished, No distress, Obese ENT Exam: Present: hearing grossly normal Neck: Present: supple, normal inspection, trachea midline. Absent: lymphadenopathy (R), lymphadenopathy (L) Respiratory: Present: lungs clear, no respiratory distress, no accessory muscle use, No wheezing. Absent: crackles, rhonchi Cardiovascular/Chest: Present: normal peripheral pulses, regular rate, rhythm, no edema, no murmur Abdomen: Present: Normal bowel sounds, soft, tender - Left lower quadrant Extremity: Present: non-tender, no pedal edema Skin Exam: Present: normal color, warm/dry Neurologic: Present: alert, normal mood/affect Appearance: Present: appropriate appearance Eye contact: Present: cooperative, good eye contact Thoughts: Present: normal thought pattern, normal mood /affect Assessment/Plan Plan Narrative: This is a 68-year-old female with a past medical history of breast cancer status post bilateral mastectomy, chemo and radiation, diverticulosis, DVT, GERD, hypertension presents with a 1 day history of diffuse abdominal pain. CT abdomen pelvis was positive for proximal small bowel obstruction likely caused by her ventral hernia, multiple ventral hernias, possible right lower lobe pulmonary embolism. She had a CT angio on November 08, 2018 that showed segmental and subsegmental right lower lobe PE, and suspected subsegmental left lower lobe PE. She is currently on Lovenox twice daily. Dr. Mcclain from general surgery is on board for co-management. She is doing much better today. Pain has some improved significantly. She is tolerating a clear liquid diet. Repeat abdominal x-ray today shows an improved partial small bowel obstruction. - Problems/Diagnosis (1) Pulmonary embolism Problem: Acute Qualifiers: Pulmonary embolism type: other Chronicity: acute (2) Small bowel obstruction Problem: Acute (3) Hypertension Problem: Chronic Qualifiers: Hypertension type: essential hypertension Qualified Code(s): I10 - Essential (primary) hypertension Narrative: She has episodes of elevated blood pressure on the enalapril. We will resume home meds when she is able to tolerate it. She does not want to try oral medications at this time but wants to wait till tomorrow. (4) GERD (gastroesophageal reflux disease) Problem: Chronic (5) Hypernatremia Problem: Acute Narrative: Improving on D5 half-normal saline
[2018-11-11] MEDS: DEXTROSE 5%-0.5 NORMAL SALINE 1,000 ML IV PRN (03:34)
[2018-11-11] MEDS: ENALAPRILAT DIHYDRATE 1.25 MG/ML VIAL IV SCH (04:45)
[2018-11-11] MEDS: ENOXAPARIN SODIUM 30 MG, ENOXAPARIN SODIUM 80 MG SC SCH ×2 (09:45)
[2018-11-11] MEDS: PANTOPRAZOLE SODIUM 40 MG in NORMAL SALINE 100 ML IV SCH (09:47)
[2018-11-11 09:54] LABS: INR 1.07 INR (0.92-1.08); Prothrombin Time (Patient) 10.6 Seconds (9.1-10.7)
--- NOTE | 2018-11-11 11:56 | DS ---
(1) Pulmonary embolism Problem: Acute Qualifiers: Pulmonary embolism type: other Chronicity: acute (2) Small bowel obstruction Problem: Suspected (3) Hypertension Problem: Chronic Qualifiers: Hypertension type: essential hypertension Qualified Code(s): I10 - Essential (primary) hypertension (4) GERD (gastroesophageal reflux disease) Problem: Chronic (5) Hypernatremia Problem: Acute Description of Stay: This is a 68-year-old female with a past medical history of breast cancer status post bilateral mastectomy, chemo and radiation, diverticulosis, DVT, GERD, hypertension presents with a 1 day history of diffuse abdominal pain. CT abdomen pelvis was positive for proximal small bowel obstruction likely caused by her ventral hernia, multiple ventral hernias, possible right lower lobe pulmonary embolism. She had a CT angio on November 08, 2018 that showed segmental and subsegmental right lower lobe PE, and suspected subsegmental left lower lobe PE. She is currently on Lovenox twice daily. Dr. Mcclain from general surgery is on board for co-management. She is doing much better today. Repeat abdominal x-ray on November 10, 2018 shows an improved partial small bowel obstruction. We have advanced her to a soft diet which she tolerated well. Abdominal pain has resolved. She be discharged home on Lovenox and Coumadin for bridging. She will follow-up with the anticoagulation clinic on November 13, 2018. She had elevated fasting blood sugar levels while hospitalized. I would recommend a hemoglobin A1c with her PCP on discharge if she has not had one in the past. Patient is aware. Procedures Performed: none Results and Findings: Lab Pending Results 11/07/18 08:51: WBC 8.6, RBC 5.08, Hgb 15.8, Hct 48.3 H, MCV 95.1, MCH 31.1 H, MCHC 32.7, RDW 12.8, Plt Count 253, MPV 9.9, Immature Gran % (Auto) 0.70 H, Immature Gran # (Auto) 0.06 H, Neutrophils % 74.7, Lymphocytes % 13.1 L, Monocytes % 8.7, Eosinophils % 2.1, Basophils % 0.7, Nucleated RBC % 0.0, Neutrophils # 6.4 H, Lymphocytes # 1.12 L, Monocytes # 0.7, Eosinophils # 0.2, Absolute Basophils 0.1 11/07/18 08:51: Sodium 141, Plasma Sodium 142, Potassium 4.2 D, Chloride 102, Carbon Dioxide 28.9, Anion Gap 14.3 H, BUN 19, Creatinine 0.76, Est GFR (Non-Af Amer) 80, BUN/Creatinine Ratio 25.0 H, Random Glucose 139 H, Calcium 9.6, Calcium Adj for Albumin 9.2, Total Bilirubin 1.1, AST 22, ALT 32, Alkaline Phosphatase 91, Total Protein 8.1, Albumin 4.1, Amylase 37, Lipase 116 11/07/18 20:38: Urine Color Yellow, Urine Appearance Slightly cloudy, Urine pH 6.0, Ur Specific [place] 1.020, Urine Protein 15 H, Urine Glucose (UA) Negative, Urine Ketones Negative, Urine Blood 5 H, Urine Nitrate Negative, Urine Bilirubin Negative, Prot Sulfosalicylic Acd Negative, Urine Urobilinogen Normal, Ur Leukocyte Esterase Negative, Urine RBC None seen, Urine WBC None seen, Ur Epithelial Cells 5-10 H, Urine Bacteria 1+ H, Urine Culture Comments No culture indicated 11/08/18 05:55: WBC 13.8 H D, RBC 4.61, Hgb 14.5, Hct 44.1, MCV 95.7, MCH 31.5 H, MCHC 32.9, RDW 12.9, Plt Count 225, MPV 9.8, Immature Gran % (Auto) 0.30, Immature Gran # (Auto) 0.04 H, Neutrophils % 84.3 H, Lymphocytes % 7.8 L, Monocytes % 7.3, Eosinophils % 0.1, Basophils % 0.2, Nucleated RBC % 0.0, Neutrophils # 11.6 H, Lymphocytes # 1.07 L, Monocytes # 1.0, Eosinophils # 0.0, Absolute Basophils 0.0 11/08/18 05:55: Sodium 140, Plasma Sodium 141, Potassium 4.2, Chloride 101, Carbon Dioxide 30.8, Anion Gap 12.4, BUN 25 H, Creatinine 0.79, Est GFR (Non-Af Amer) 76, BUN/Creatinine Ratio 31.6 H, Random Glucose 148 H, Calcium 9.2, Calcium Adj for Albumin 9.4, Total Bilirubin 1.7 H, AST 22, ALT 31, Alkaline Phosphatase 76, Total Protein 6.7, Albumin 3.4 11/09/18 05:55: WBC 9.6 D, RBC 4.56, Hgb 14.3, Hct 44.2, MCV 96.9, MCH 31.4 H, MCHC 32.4, RDW 13.2, Plt Count 172, MPV 10.5, Immature Gran % (Auto) 0.50 H, Immature Gran # (Auto) 0.05 H, Neutrophils % 79.3 H, Lymphocytes % 9.8 L, Monocytes % 10.1 H, Eosinophils % 0.1, Basophils % 0.2, Nucleated RBC % 0.0, Neutrophils # 7.6 H, Lymphocytes # 0.94 L, Monocytes # 1.0, Eosinophils # 0.0, Absolute Basophils 0.0 11/09/18 05:55: Sodium 145 H, Plasma Sodium 146 H, Potassium 4.2, Chloride 105, Carbon Dioxide 31.7, Anion Gap 12.5, BUN 28 H, Creatinine 0.82, Est GFR (Non-Af Amer) 73, BUN/Creatinine Ratio 34.1 H, Random Glucose 150 H, Calcium 8.7, Calcium Adj for Albumin 8.9, Total Bilirubin 1.7 H, AST 23, ALT 27, Alkaline Phosphatase 73, Total Protein 6.2, Albumin 3.3 L 11/10/18 05:53: WBC 8.3, RBC 4.64, Hgb 14.4, Hct 45.3, MCV 97.6, MCH 31.0, MCHC 31.8 L, RDW 13.3, Plt Count 217, MPV 10.1, Immature Gran % (Auto) 0.80 H, Immature Gran # (Auto) 0.07 H, Neutrophils % 68.9, Lymphocytes % 17.7 L, Monocytes % 11.1 H, Eosinophils % 1.0, Basophils % 0.5, Nucleated RBC % 0.0, Neutrophils # 5.7, Lymphocytes # 1.47 L, Monocytes # 0.9, Eosinophils # 0.1, Absolute Basophils 0.0 11/10/18 05:53: Sodium 143 H, Plasma Sodium 144 H, Potassium 3.5, Chloride 104, Carbon Dioxide 29.8, Anion Gap 12.7, BUN 20, Creatinine 0.73, Est GFR (Non-Af Amer) 84, BUN/Creatinine Ratio 27.4 H, Random Glucose 137 H, Calcium 8.7, Calcium Adj for Albumin 9.0, Total Bilirubin 2.1 H, AST 21, ALT 27, Alkaline Phosphatase 67, Total Protein 6.6, Albumin 3.2 L 11/11/18 09:38: PT 10.6, INR (Anticoag Therapy) 1.07 Discharge Location: Home Disposition: Home self-care Condition: Fair Discharge Activity: Activity as tolerated - 1-year-old Discharge Diet: General/regular food Referrals: Jayne Toscano DO [Primary Care Provider] - Problem Oriented Discharge Instructions to Patient/Family: Small Bowel Obstruction, [id number] Additional Patient Instructions (free text): -Follow up with Dr. Toscano 11/24 at 10:00am. Appointment at the [facility] on at 10am. Check in at the ER registration desk. Coumadin sent to [facility]. Enoxaparin called into [facility]. Prescriptions (Any new or edited meds): Warfarin Sodium [Coumadin] 5 mg PO DAILY #30 tab Enoxaparin Sodium [Lovenox] 120 mg SQ BID #10 disp.syrin Complete Home Medications List: Complete Home Medication List: Aspirin [Aspirin Enteric Coated] 81 mg PO DAILY 10/25/15 Calcium Carbonate/Vitamin D3 [Calcium 600-Vit D3 400 Tablet] 1 ea PO DAILY 10/25/15 Multivitamins [Multivitamin Ki] 1 cap PO DAILY 10/25/15 [place]-3 Fatty Acids [Fish Oil] 1,200 mg PO DAILY 10/25/15 Ibuprofen [Motrin] 600 mg PO Q8H PRN #30 tab 03/18/18 Prochlorperazine [Compazine] 25 mg RC Q6H PRN #12 supp.rect 06/12/18 Pravastatin Sodium [Pravachol] 80 mg PO HS 11/07/18 amlodipine 5 mg tablet 5 mg PO DAILY #90 tab 11/07/18 duloxetine 30 mg capsule,delayed release 30 mg PO DAILY #90 cap 11/07/18 irbesartan 300 mg tablet 300 mg PO DAILY #90 tab 11/07/18 metoprolol tartrate 100 mg tablet 100 mg PO BID #180 tab 11/07/18 ranitidine 150 mg tablet 150 mg PO BID #180 tab 11/07/18 Enoxaparin Sodium [Lovenox] 120 mg SQ BID #10 disp.syrin 11/11/18 Warfarin Sodium [Coumadin] 5 mg PO DAILY #30 tab 11/11/18
[2018-11-11 13:36] VITALS: BP 158/81
== END 2018-11-11 14:28 | disposition home or self-care (01) | DRG 388 ==
LOC: ER 08:11 → MS 15:10
PROVIDERS: ADMIT Internal Medicine; ATTEND Family Medicine
CPT/HCPCS: 36415; 71010; 71045; 71275; 74019; 74020; 74177; 80053; 81001; 82150; 83690; 85025; 85610; J2405; Q9963; Q9967

== ENCOUNTER 2019-12-09 21:01 | Inpatient (IN) ==
[2019-12-09] MEDS ORDERED: ONDANSETRON HCL/PF 2 MG/ML VIAL IV ONE (21:45)
--- NOTE | 2019-12-09 21:45 | ERNOTE ---
Abdominal HPI - General Chief Complaint: Abdominal Pain Time Seen by Provider: 12/09/19 21:39 Source: patient Exam Limitations: no limitations - Immun/Allergies/Home Medications Immunizatons: IMMUNIZATION HX Immunizations Up to Date Yes History of Influenza Vaccine Yes Hx Pneumococcal Vaccination No Allergies/Adverse Reactions: Allergies No Known Allergies Allergy (Verified 06/16/19 10:44) Home Medications: HOME MEDICATIONS Aspirin [Aspirin Enteric Coated] 81 mg PO DAILY 10/25/15 [Last Taken 11/07/18 08:00] Calcium Carbonate/Vitamin D3 [Calcium 600-Vit D3 400 Tablet] 1 ea PO DAILY 10/25/15 [Last Taken 11/07/18 08:00] Multivitamins [Multivitamin Ki] 1 cap PO DAILY 10/25/15 [Last Taken 11/07/18 08:00] [place]-3 Fatty Acids [Fish Oil] 1,200 mg PO DAILY 10/25/15 [Last Taken 11/07/18 08:00] warfarin 5 mg tablet 7.5 mg PO SUTUTHSA tab 11/24/18 [Last Taken Unknown] irbesartan 300 mg tablet 300 mg PO DAILY #90 tab 07/14/19 [Last Taken Unknown] metformin 500 mg tablet 500 mg PO BID #120 tab 10/15/19 [Last Taken Unknown] DULoxetine HCL [Cymbalta] 30 mg PO DAILY 12/09/19 [Last Taken Unknown] Famotidine 20 mg PO BID 12/09/19 [Last Taken Unknown] Metoprolol Tartrate 100 mg PO BID 12/09/19 [Last Taken Unknown] Pravastatin Sodium 80 mg PO DAILY 12/09/19 [Last Taken Unknown] Warfarin Sodium [Coumadin] 7.5 mg PO MOWEFR 12/09/19 [Last Taken Unknown] amLODIPine BESYLATE [Norvasc] 5 mg PO DAILY 12/09/19 [Last Taken Unknown] - History of Present Illness Narrative: Patient states she has multiple ventral hernias which cause obstructions intermittently. Today around 1700 she began to have abdominal pain especially in the upper ventral hernia that is nearly in the epigastric region. She states this feels like previous bowel obstructions. Timing: getting worse Quality: moderate, severe, cramping, fullness Activities at Onset: none Associated Symptoms: Present: denies symptoms Review of Systems - Review of Systems Constitutional: Absent: recent illness, fever, chills ENT: Absent: nose congestion, nasal drainage Respiratory: Absent: shortness of breath, cough Cardiology: Absent: chest pain Gastrointestinal/Abdominal: Present: See HPI, nausea. Absent: vomiting Genitourinary: Absent: frequency, pain, dysuria Musculoskeletal: Absent: back pain Endocrine: Absent: excessive sweating Medical History (Last Reviewed 12/10/19 @ 03:03 by Rohit Dalton DO) Abnormal computed tomography of abdomen and pelvis (Acute) Hypertension (Chronic) GERD (gastroesophageal reflux disease) (Chronic) Hypernatremia (Acute) Pulmonary embolism (Chronic) Small bowel obstruction (Resolved) Encounter for postoperative care (Acute) 1 week post op LLQ pain (Acute) in the past 3 weeks Abdominal wall hernia (Chronic) History of breast cancer (Resolved) s/p tamoxifen use x few months in 2009 Endometrial thickening on ultrasound (Acute) 1.23 cm with fluid in the endometrial canal Endometrial mass (Acute) 1.51 x 1.05 x 0.94 cm, polypoid, cystic spaces Fracture Onset Date: ~2012 right wrist fracture GERD (gastroesophageal reflux disease) Hypertension Joint pain Knee pain bilateral Thrombosed external hemorrhoid varicose veins Diverticulosis Onset Date: ~10/31/15 Breast cancer Onset Date: ~2009 chemo and radiation DVT (deep venous thrombosis) Onset Date: ~2009 due to Tamoxifen Pain in female pelvis (Resolved) in past 3 weeks Vomiting (Resolved) Surgical History: Surgical History (Last Reviewed 12/10/19 @ 03:03 by Rohit Dalton DO) History of hysteroscopy Onset Date: ~03/18/18 History of lymph node dissection of right axilla History of tubal ligation Onset Date: ~1993 H/O breast surgery Onset Date: ~11/03/09 double mastectomy H/O colonoscopy Onset Date: ~10/31/152003 & 10/30/18. 04-negative' 16-thrombosed external hemorrhoid, diverti culosis-recheck in 10 years History of appendectomy Onset Date: ~1964 History of exploratory laparotomy Onset Date: ~2013 due to nicked jejunum from lap jonathon History of skin graft Onset Date: ~02/2010 over right breast incision Hx laparoscopic cholecystectomy Onset Date: ~09/2013 S/P mastectomy, bilateral Onset Date: ~2009 Family History: Family History (Last Reviewed 12/10/19 @ 03:03 by Rohit Dalton DO) Mother Hypertension H/O heart bypass surgery Father Cancer kidney Social History: (Last Reviewed 12/10/19 @ 03:03 by Rohit Dalton DO) Social History: adopted: No foster care: No penitentiary: No Marital status: / household members: none number of children: 2 caregiver/support person: No current occupational status: retired current occupation: retired Highest education level completed: Associate degree: academi Service: No Tobacco: Smoking Status: Never smoker second hand exposure: No Alcohol: alcohol intake: current alcohol intake frequency: holiday/special occasion Substance Use: substance use type: does not use Dietary Habits: caffeine: Yes Exercise: Physical activity functional status: independent ambulation Physical Exam - Physical Exam General Appearance: Present: wd/wn, alert, mild distress Head Exam: Present: normal inspection, no evidence of injury Neck: Present: normal inspection, nontender, supple Respiratory: Present: no respiratory distress, no accessory muscle use, chest nontender, lungs clear Cardiovascular/Chest: Present: regular rate, rhythm, no murmur Gastrointestinal/Abdominal: Present: tenderness - Diffuse but most tenderness is in the midline upper ventral hernia. This is soft and feels reducible. She has some tenderness in the ventral hernia in the right upper quadrant which is more firm than the previous but is less tender., abnormal bowel sounds - Hypoactive. Absent: distended, guarding, rebound Back Exam: Present: normal inspection, normal range of motion Extremity Exam: Present: normal inspection, normal range of motion, no edema Neurological Exam: Present: alert, oriented, normal mood/affect, no motor/sens ory deficits Skin Exam: Present: normal color, warm/dry Lymphatic Exam: Present: no adenopathy Progress - Results and Orders Patient's Lab Results:: I have reviewed the patient's lab results. Results and Orders: Laboratory Tests 12/09/19 12/09/19 12/09/19 21:55 21:55 21:55 WBC 8.9 Hgb 15.0 Hct 46.3 Plt Count 279 Sodium 142 Potassium 4.3 Chloride 102 Carbon Dioxide 32.6 BUN 21 Creatinine 1.06 Lactic Acid, Venous 1.8 Calcium 9.9 Total Bilirubin 1.0 AST 28 ALT 41 Alkaline Phosphatase 60 Amylase 39 Lipase 114 Urine Color Urine Appearance Ur Specific [place] Urine Protein Urine Glucose (UA) Urine Ketones Urine Blood Urine Nitrate Ur Leukocyte Esterase Urine Culture Comments 12/09/19 22:45 WBC Hgb Hct Plt Count Sodium Potassium Chloride Carbon Dioxide BUN Creatinine Lactic Acid, Venous Calcium Total Bilirubin AST ALT Alkaline Phosphatase Amylase Lipase Urine Color Yellow Urine Appearance Clear Ur Specific [place] 1.020 Urine Protein Negative Urine Glucose (UA) Negative Urine Ketones 5 Urine Blood Negative Urine Nitrate Negative Ur Leukocyte Esterase Negative Urine Culture Comments No culture indicated - Vital Signs Patient's Vital Signs:: I have reviewed the patient's vital signs. Vital Signs: Vital Signs 12/09/19 21:31 Temperature 36.4 C Pulse Rate 78 Respiratory Rate 16 Blood Pressure 193/102 H O2 Sat by Pulse Oximetry 97 - X-Ray X-Ray #1 X-Ray: abdomen Interpretation: Interp. by me X-ray Comments: Plan upright views limited by body habitus. There is a paucity of air for any air-fluid levels to be ascertained. X-Ray #2 X-Ray: chest Interpretation: Interp. by me X-ray Comments: Chest x-ray for NG tube placement. Due to patient's body habitus and multiple hernias it is not perfectly clear that the tip of the NG tube is below the diaphragm but the stomach is in a ventral hernia that actually projects above the diaphragm and it does appear that the NG tube is in the stomach. NG tube was connected to intermittent suction for confirmation and there is obvious gastric fluid in the NG tube. Patient is comfortable has no respiratory symptoms or other signs that the NG tube is not in appropriate placement. - CT/Ultrasound CT/Ultrasound Narrative: CT abdomen pelvis with IV and oral contrast: 1. Acute small bowel obstruction secondary to entrapment within the left lower quadrant abdominal wall hernia. No evidence for perforation. 2. Appendix not visualized on exam. 3. Multiple ventral hernias - Progress/Reassessment Chief Complaint: Abdominal Pain Progress:: Improved Progress Note-Subjective: 12/09/19 23:01 Spoke with the patient about benign labs and inconclusive x-ray. I suggested CT abdomen pelvis due to her history and her continued pain. She states she is feeling a little bit better after the morphine but still having quite a bit of pain. 12/10/19 03:[address] Toscano about CAT scan results and possibility of admitting the patient despite not having general surgeon wagon driller until morning. Dr. Toscano agrees for admission long as the patient understands that if conservative measures are not working she will probably need to be transferred to the [facility] due to her extensive surgical and hernia histories. I spoke to the patient she is actually grateful that we are willing to keep her here as her previous bowel obstructions have all resolved with conservative treatment and the last one was due to the same hernia that is causing her obstruction today. She expresses understanding that she may need to go to the [facility] if conservative treatment is not successful. Departure Clinical Impression: Abdominal wall hernia, Small bowel obstruction - Departure Disposition: Still a patient Condition: Good
[2019-12-09 22:03] LABS: Hematocrit 46.3 % (37.0-47.0); Mean Cell Volume 94.5 fl (78-100); Mean Corpuscular Hemoglobin 30.6 pg (27-31); Mean Corpuscular Hgb Conc 32.4 g/dl (32-36); Mean Platelet Volume 9.7 fl (8-12.5); Neutrophil # 6.5 K/mm3 (1.3-6.0); Neutrophil % 73.2 % (42-75.0); Platelet Count 279 K/mm3 (150-450); Red Cell Distribution Width 13.5 % (11.5-14.0); White Blood Count 8.9 K/mm3 (4.0-10.5)
[2019-12-09 22:16] LABS: Albumin * 3.9 gm/dl (3.4-5.0); Anion Gap 11.7 mmol/L (6.8-13.8); BUN/Creatinine Ratio 19.8 (9.0-21.6); Ca. Corrected For Albumin 9.7 mg/dL (8.4-10.2); Calcium * 9.9 mg/dL (7.9-10.9); Carbon Dioxide 32.6 mmol/L (24-32.6); Potassium 4.3 mmol/L (3.4-4.6); Total Protein 7.6 gm/dL (6.2-8.2)
[2019-12-09] MEDS ORDERED: MORPHINE SULFATE 2 MG/ML DISP.SYRIN IV ONE (22:23)
[2019-12-09 22:53] LABS: Urine Bilirubin Negative (NEGATIVE); Urine Blood Negative /ul (NEGATIVE); Urine Ketone 5 mg/dL (NEGATIVE); Urine Nitrite Negative (NEGATIVE); Urine Protein Negative (NEGATIVE); Urine Urobilinogen Normal (NORMAL)
[2019-12-09 22:58] LABS: Urine Appearance Clear (CLEAR); Urine Bacteria 1+; Urine Color Yellow; Urine RBC None Seen /hpf (0-5); Urine WBC 0-5 /hpf (0-5)
[2019-12-09] MEDS ORDERED: DIATRIZOATE MEGLUMINE, SODIUM 30 ML BTL PO ONE (23:01)
[2019-12-10] MEDS ORDERED: ONDANSETRON HCL/PF 2 MG/ML VIAL IV ONE (00:46)
[2019-12-10] MEDS ORDERED: MORPHINE SULFATE 2 MG/ML DISP.SYRIN IV ONE ×2 (00:48→02:49)
[2019-12-10] MEDS ORDERED: PROCHLORPERAZINE EDISYLATE 5 MG/ML VIAL IV ONE (02:48)
[2019-12-10] MEDS: MORPHINE SULFATE 2 MG/ML DISP.SYRIN IV PRN ×6 (06:40→23:15)
--- NOTE | 2019-12-10 08:25 | HP ---
Chief Complaint - Chief Complaint Date of Service: 12/10/19 Time of Service: 08:24 Chief Complaint: abdominal pain History of Present Illness: Patient with past medical history of multiple abdominal hernias, hypertension, previous PE on warfarin, history of breast cancer presents to the ER with abdominal pain. She had sudden onset around 5:00 yesterday evening. This feels similar to other small bowel obstructions she has had in the past. She is having nausea and vomiting. Is not passing gas. Her last bowel movement was yesterday. Work-up in the ED showed small bowel obstruction in the left paraumbilical region and NG tube was placed. On my exam this morning, she continues to have pain and vomiting. She feels like the NG tube did remove quite a bit of material in the beginning. She is still urinating. Medical History (Last Reviewed 12/10/19 @ 03:03 by Rohit Dalton DO) Abnormal computed tomography of abdomen and pelvis (Acute) Hypertension (Chronic) GERD (gastroesophageal reflux disease) (Chronic) Hypernatremia (Acute) Pulmonary embolism (Chronic) Small bowel obstruction (Resolved) Encounter for postoperative care (Acute) 1 week post op LLQ pain (Acute) in the past 3 weeks Abdominal wall hernia (Chronic) History of breast cancer (Resolved) s/p tamoxifen use x few months in 2009 Endometrial thickening on ultrasound (Acute) 1.23 cm with fluid in the endometrial canal Endometrial mass (Acute) 1.51 x 1.05 x 0.94 cm, polypoid, cystic spaces Fracture Onset Date: ~2012 right wrist fracture GERD (gastroesophageal reflux disease) Hypertension Joint pain Knee pain bilateral Thrombosed external hemorrhoid varicose veins Diverticulosis Onset Date: ~10/31/15 Breast cancer Onset Date: ~2009 chemo and radiation DVT (deep venous thrombosis) Onset Date: ~2009 due to Tamoxifen Pain in female pelvis (Resolved) in past 3 weeks Vomiting (Resolved) Surgical History: Surgical History (Last Reviewed 12/10/19 @ 03:03 by Rohit Dalton DO) History of hysteroscopy Onset Date: ~03/18/18 History of lymph node dissection of right axilla History of tubal ligation Onset Date: ~1993 H/O breast surgery Onset Date: ~11/03/09 double mastectomy H/O colonoscopy Onset Date: ~10/31/152003 & 10/30/18. 04-negative' 16-thrombosed external hemorrhoid, diverticulosis-recheck in 10 years History of appendectomy Onset Date: ~1964 History of exploratory laparotomy Onset Date: ~2013 due to nicked jejunum from lap jonathon History of skin graft Onset Date: ~02/2010 over right breast incision Hx laparoscopic cholecystectomy Onset Date: ~09/2013 S/P mastectomy, bilateral Onset Date: ~2009 Family History: Family History (Last Reviewed 12/10/19 @ 03:03 by Rohit Dalton DO) Mother Hypertension H/O heart bypass surgery Father Cancer kidney Social History: (Last Reviewed 12/10/19 @ 03:03 by Rohit Dalton DO) Social History: adopted: No foster care: No long-term: No Marital status: / household members: none number of children: 2 caregiver/support person: No current occupational status: retired current occupation: retired Highest education level completed: Associate degree: academi Service: No Tobacco: Smoking Status: Never smoker second hand exposure: No Alcohol: alcohol intake: current alcohol intake frequency: holiday/special occasion Substance Use: substance use type: does not use Dietary Habits: caffeine: Yes Exercise: Physical activity functional status: independent ambulation Review Of Systems (GEN) - Review of Systems Generalized/Overall Review: Absent: Fever Respiratory: Absent: Shortness of Breath Cardiac: Absent: Chest Pain Abdominal: Present: Nausea, Vomiting, Abdominal Pain Genitourinary: Present: No Symptoms Reported Musculoskeletal: Present: No Symptoms Reported Neurological: Present: No Symptoms Reported Immunizations: IMMUNIZATION HX Immunizations Up to Date Yes History of Influenza Vaccine Yes Hx Pneumococcal Vaccination No Allergies/Adverse Reactions: Allergies Allergy/AdvReac Type Severity Reaction Status Date / Time No Known Allergies Allergy Verified 06/16/19 10:44 Home Medications: HOME MEDICATIONS Aspirin [Aspirin Enteric Coated] 81 mg PO DAILY 10/25/15 [Last Taken 11/07/18 08:00] Calcium Carbonate/Vitamin D3 [Calcium 600-Vit D3 400 Tablet] 1 ea PO DAILY 10/25/15 [Last Taken 11/07/18 08:00] Multivitamins [Multivitamin Ki] 1 cap PO DAILY 10/25/15 [Last Taken 11/07/18 08:00] [place]-3 Fatty Acids [Fish Oil] 1,200 mg PO DAILY 10/25/15 [Last Taken 11/07/18 08:00] warfarin 5 mg tablet 7.5 mg PO MOWEFR tab 11/24/18 [Last Taken Unknown] irbesartan 300 mg tablet 300 mg PO DAILY #90 tab 07/14/19 [Last Taken Unknown] metformin 500 mg tablet 500 mg PO BID #120 tab 10/15/19 [Last Taken Unknown] DULoxetine HCL [Cymbalta] 30 mg PO DAILY 12/09/19 [Last Taken Unknown] Famotidine 20 mg PO BID 12/09/19 [Last Taken Unknown] Metoprolol Tartrate 100 mg PO BID 12/09/19 [Last Taken Unknown] Pravastatin Sodium 80 mg PO DAILY 12/09/19 [Last Taken Unknown] Warfarin Sodium [Coumadin] 5 mg PO SUTUTHSA 12/09/19 [Last Taken Unknown] amLODIPine BESYLATE [Norvasc] 5 mg PO DAILY 12/09/19 [Last Taken Unknown] Exam - Exam Vital Signs: Vital Signs - Last Taken Temp 36.8 C 12/10/19 08:22 Pulse 70 12/10/19 08:22 Resp 14 12/10/19 08:22 BP 186/83 H 12/10/19 08:22 Pulse Ox 95 12/10/19 08:22 Constitutional: Present: Alert, Moderate distress, Morbidly obese ENT Exam: Present: other - NG tube in place, actively draining Respiratory: Present: normal breath sounds, no respiratory distress Cardiovascular/Chest: Present: regular rate, rhythm Abdomen: Present: obese, hernia - Multiple Extremity: Present: lower extremity edema - 2+ bilaterally Eye contact: Present: cooperative Diagnostic Studies: Abnormal Lab Results 12/09/19 12/09/19 12/09/19 Range/Units 21:55 21:55 22:45 Immature Gran % (Auto) 0.50 H (0.001-0.429) % Immature Gran # (Auto) 0.04 H (0.000-0.0310) K/mm3 Lymphocytes % 15.0 L (20-51) % Monocytes % 9.1 H (0.0-9) % Neutrophils # 6.5 H (1.3-6.0) K/mm3 Lymphocytes # 1.33 L (1.5-3.5) k/mm3 Est GFR (Non-Af Amer) 54 L D (60-130) mL/min Random Glucose 128 H (70-110) mg/dL Urine Bacteria 1+ H (NONE) Laboratory Results WBC 8.9 K/mm3 (4.0-10.5) 12/09/19 21:55 RBC 4.90 M/mm3 (4.2-5.4) 12/09/19 21:55 Hgb 15.0 gm/dL (12.5-16.0) 12/09/19 21:55 Hct 46.3 % (37.0-47.0) 12/09/19 21:55 MCV 94.5 fl (78-100) 12/09/19 21:55 MCH 30.6 pg (27-31) 12/09/19 21:55 MCHC 32.4 g/dl (32-36) 12/09/19 21:55 RDW 13.5 % (11.5-14.0) 12/09/19 21:55 Plt Count 279 K/mm3 (150-450) 12/09/19 21:55 MPV 9.7 fl (8-12.5) 12/09/19 21:55 Immature Gran % (Auto) 0.50 % (0.001-0.429) H 12/09/19 21:55 Immature Gran # (Auto) 0.04 K/mm3 (0.000-0.0310) H 12/09/19 21:55 Neutrophils % 73.2 % (42-75.0) 12/09/19 21:55 Lymphocytes % 15.0 % (20-51) L 12/09/19 21:55 Monocytes % 9.1 % (0.0-9) H 12/09/19 21:55 Eosinophils % 1.6 % (0.0-3.0) 12/09/19 21:55 Basophils % 0.6 % (0.0-1.0) 12/09/19 21:55 Nucleated RBC % 0.0 k/mm3 (0-1) 12/09/19 21:55 Neutrophils # 6.5 K/mm3 (1.3-6.0) H 12/09/19 21:55 Lymphocytes # 1.33 k/mm3 (1.5-3.5) L 12/09/19 21:55 Monocytes # 0.8 k/mm3 (0.0-1.0) 12/09/19 21:55 Eosinophils # 0.1 k/mm3 (0.0-0.7) 12/09/19 21:55 Absolute Basophils 0.1 k/mm3 (0.0-0.1) 12/09/19 21:55 Sodium 142 mmol/L (132-142) 12/09/19 21:55 Plasma Sodium 142 mmol/L (130-142) 12/09/19 21:55 Potassium 4.3 mmol/L (3.4-4.6) 12/09/19 21:55 Chloride 102 mmol/L (97-106) 12/09/19 21:55 Carbon Dioxide 32.6 mmol/L (24-32.6) 12/09/19 21:55 Anion Gap 11.7 mmol/L (6.8-13.8) 12/09/19 21:55 BUN 21 mg/dL (3-23) 12/09/19 21:55 Creatinine 1.06 mg/dL (0.4-1.4) 12/09/19 21:55 Est GFR (Non-Af Amer) 54 mL/min (60-130) L D 12/09/19 21:55 BUN/Creatinine Ratio 19.8 (9.0-21.6) 12/09/19 21:55 Random Glucose 128 mg/dL (70-110) H 12/09/19 21:55 Lactic Acid, Venous 1.8 mmol/L (0.4-2.0) 12/09/19 21:55 Calcium 9.9 mg/dL (7.9-10.9) 12/09/19 21:55 Calcium Adj for Albumin 9.7 mg/dL (8.4-10.2) 12/09/19 21:55 Total Bilirubin 1.0 mg/dL (0.0-1.1) 12/09/19 21:55 AST 28 U/L (0-48) 12/09/19 21:55 ALT 41 U/L (19-67) 12/09/19 21:55 Alkaline Phosphatase 60 U/L (50-170) 12/09/19 21:55 Total Protein 7.6 gm/dL (6.2-8.2) 12/09/19 21:55 Albumin 3.9 gm/dl (3.4-5.0) 12/09/19 21:55 Amylase 39 U/L (25-115) 12/09/19 21:55 Lipase 114 U/L (73-393) 12/09/19 21:55 Urine Color Yellow 12/09/19 22:45 Urine Appearance Clear (CLEAR) 12/09/19 22:45 Urine pH 7.0 pH (5.0-7.0) 12/09/19 22:45 Ur Specific [employer] 1.020 SP.GR. (1.005-1.010) 12/09/19 22:45 Urine Protein Negative mg/dL (NEGATIVE) 12/09/19 22:45 Urine Glucose (UA) Negative mg/dL (NEGATIVE) 12/09/19 22:45 Urine Ketones 5 mg/dL (NEGATIVE) 12/09/19 22:45 Urine Blood Negative /ul (NEGATIVE) 12/09/19 22:45 Urine Nitrate Negative (NEGATIVE) 12/09/19 22:45 Urine Bilirubin Negative mg/dl (NEGATIVE) 12/09/19 22:45 Urine Urobilinogen Normal EU/dl (NORMAL) 12/09/19 22:45 Ur Leukocyte Esterase Negative /ul (NEGATIVE) 12/09/19 22:45 Urine RBC None seen /hpf (0-5) 12/09/19 22:45 Urine WBC 0-5 /hpf (0-5) 12/09/19 22:45 Ur Epithelial Cells 0-5 /hpf (0-5) 12/09/19 22:45 Urine Bacteria 1+ (NONE) H 12/09/19 22:45 Urine Culture Comments No culture indicated 12/09/19 22:45 Assessment/Plan - Assessment/Plan (1) Small bowel obstruction Assessment: CT abdomen pelvis shows "Small bowel obstruction related to a abdominal wall hernia in the left paraumbilical region. No pneumatosis or portal venous gas. Multifocal abdominal wall hernias." She has extensive abdominal hernias and has had small bowel obstructions multiple times in the past. She was seen by surgery at the [facility], but was not a good surgical candidate due to the multiple hernias. NG tube is been placed, and will see if this is enough for resolution. If not, she will need to be transferred to the [facility]. She will remain n.p.o., with NG tube to suction for now. We will continue morphine, Zofran, Compazine as needed. Anticipate at least a 2 midnight stay. Problem: Acute (2) Hypertension Assessment: Her blood pressure is elevated, but she cannot take her home medicines while she has an NG tube to suction. Will give 20 mg IV of labetalol for blood pressure greater than 180/90. I anticipate her elevation blood pressure is also due to pain. Problem: Chronic Qualifiers: Hypertension type: essential hypertension Qualified Code(s): I10 - Essential (primary) hypertension (3) History of pulmonary embolism Assessment: She cannot take her warfarin right now, so will administer Lovenox. She has had blood clots on more than one occasion, so she will need to remain anticoagulated for life. No shortness of breath, CP or increased oxygen requirement right now. Problem: Acute (4) GERD (gastroesophageal reflux disease) Problem: Chronic (5) History of breast cancer Problem: Resolved (6) Abdominal wall hernia Assessment: Multiple, extensive. She is prone to intermittent bowel obstructions. Problem: Chronic
[2019-12-10] MEDS ORDERED: ONDANSETRON HCL/PF 2 MG/ML VIAL IV PRN (09:11)
[2019-12-10] MEDS: ENOXAPARIN SODIUM 40 MG/0.4 ML SYRG SC SCH (09:55)
[2019-12-10] MEDS: LABETALOL HCL 5 MG/ML VIAL IV PRN ×2 (09:55→15:40)
[2019-12-10] MEDS: NORMAL SALINE 1,000 ML IV PRN ×2 (10:13→15:41)
[2019-12-10] MEDS: PROCHLORPERAZINE EDISYLATE 5 MG/ML VIAL IV PRN ×2 (15:40→23:21)
[2019-12-11] MEDS: MORPHINE SULFATE 2 MG/ML DISP.SYRIN IV PRN ×3 (03:31→09:53)
[2019-12-11] MEDS: NORMAL SALINE 1,000 ML IV PRN ×3 (07:18→20:37)
[2019-12-11] MEDS: ENOXAPARIN SODIUM 40 MG/0.4 ML SYRG SC SCH (09:17)
--- NOTE | 2019-12-11 11:19 | PN ---
Subjective - Date and Time Seen Date: 12/11/19 Time: 11:10 Subjective Narrative: She reports feeling better this morning. Is no longer having nausea. Output from the NG does not seem to have decreased. Is still using IV morphine every 3-4 hours. Is not passing gas. BP is better today, Objective - Review of Systems Generalized/Overall Review: Denies: Fever Respiratory: Denies: Shortness of Breath Cardiac: Denies: Chest Pain Abdominal: Reports: Nausea, Abdominal Pain. Denies: Diarrhea Genitourinary Symptoms: Reports: No Symptoms Reported Musculoskeletal Complaints: Reports: No Symptoms Reported - Vitals Vitals: Last Vital Signs Temp 36.9 C 12/11/19 10:26 Pulse 88 12/11/19 10:26 Resp 12 12/11/19 10:26 BP 157/75 H 12/11/19 10:26 Pulse Ox 95 12/11/19 10:26 - Exam Constitutional: Present: Alert, No distress, Obese ENT Exam: Present: other - NG tube in place Respiratory: Present: normal breath sounds Cardiovascular/Chest: Present: regular rate, rhythm Abdomen: Present: tender, no bowel sounds, hernia - multiple Eye contact: Present: cooperative, good eye contact Assessment/Plan - Problems/Diagnosis (1) Small bowel obstruction Problem: Acute Narrative: Symptoms started the afternoon of 12/08, and NG was placed in the ED around 0351 yesterday morning. She continues to have output from the NG, and left lower abdominal pain. Her nausea has improved. She has multiple abdominal hernias, and has had multiple bowel obstructions in the past. She is improving with the NG. She'd prefer not to transfer to the [facility] if possible. Will continue with the NG and IV fluids, ok to have ice chips. She is slowly improving. If she still can not tolerate po fluids by tomorrow, will switch fluids to D5. CBC, CMP pending in am. If she is not improving, or pain worsens, will transfer for possible surgical intervention. She has approximately 7 abdominal hernias, some of which are very large. If she needs surgery, this will need to be done at another facility. (2) Hypertension Problem: Chronic Qualifiers: Hypertension type: essential hypertension Qualified Code(s): I10 - Essential (primary) hypertension Narrative: Since she has an NG to suction, she can not take home meds. Will give IV la betalol for BP greater than 180/90, which she has gotten twice since admission. BP is better this morning. (3) History of pulmonary embolism Problem: Acute Narrative: She has had PE's on two separate occasions, requiring lifelong anticoagulation. Continue lovenox while she is NPO. (4) GERD (gastroesophageal reflux disease) Problem: Chronic (5) Abdominal wall hernia Problem: Chronic (6) History of breast cancer Problem: Resolved
[2019-12-11] MEDS: LABETALOL HCL 5 MG/ML VIAL IV PRN (20:28)
[2019-12-12] MEDS: NORMAL SALINE 1,000 ML IV PRN (03:21)
[2019-12-12 06:51] LABS: Hemoglobin 13.1 gm/dL (12.5-16.0); Mean Cell Volume 96.9 fl (78-100); Mean Platelet Volume 9.4 fl (8-12.5); Neutrophil # 6.6 K/mm3 (1.3-6.0); Platelet Count 196 K/mm3 (150-450); Red Blood Count 4.23 M/mm3 (4.2-5.4); Red Cell Distribution Width 13.7 % (11.5-14.0); White Blood Count 8.8 K/mm3 (4.0-10.5)
[2019-12-12 07:07] LABS: Albumin * 3.1 gm/dl (3.4-5.0); Anion Gap 9.5 mmol/L (6.8-13.8); BUN/Creatinine Ratio 17.5 (9.0-21.6); Bilirubin, Total 2.4 mg/dL (0.0-1.1); Ca. Corrected For Albumin 8.3 mg/dL (8.4-10.2); Calcium * 7.9 mg/dL (7.9-10.9); Carbon Dioxide 28.8 mmol/L (24-32.6); Potassium 3.3 mmol/L (3.4-4.6); Total Protein 6.2 gm/dL (6.2-8.2)
[2019-12-12] MEDS ORDERED: WARFARIN SODIUM 5 MG TABLET PO SCH (07:45)
[2019-12-12] MEDS ORDERED: amLODIPine BESYLATE 5 MG TABLET PO SCH (09:00)
[2019-12-12] MEDS ORDERED: LOSARTAN POTASSIUM 50 MG TABLET PO SCH (09:00)
[2019-12-12] MEDS ORDERED: METOPROLOL TARTRATE 100 MG TABLET PO SCH (09:00)
[2019-12-12 09:13] LABS: INR 1.17 INR (0.92-1.08); Prothrombin Time (Patient) 11.5 Seconds (9.1-10.7)
[2019-12-12] MEDS ORDERED: FAMOTIDINE 20 MG TABLET PO SCH (09:15)
--- NOTE | 2019-12-12 09:20 | PN ---
Subjective - Date and Time Seen Date: 12/12/19 Time: 08:45 Subjective Narrative: Pt's NG tube has been clamped since yesterday afternoon, and she is doing well. She hasn't required pain meds since then. She is tolerating a clear liquid diet, and is passing gas. Objective - Review of Systems Generalized/Overall Review: Denies: Fever Respiratory: Denies: Cough, Shortness of Breath Cardiac: Denies: Chest Pain, Edema Abdominal: Denies: Nausea, Abdominal Pain Genitourinary Symptoms: Reports: No Symptoms Reported Musculoskeletal Complaints: Reports: No Symptoms Reported Neurological: Reports: No Symptoms Reported - Vitals Vitals: Last Vital Signs Temp 37.3 C 12/12/19 07:59 Pulse 108 H 12/12/19 07:59 Resp 16 12/12/19 07:59 BP 198/100 H 12/12/19 07:59 Pulse Ox 94 12/12/19 07:59 - Abnormal Lab Findings Abnormal Lab Findings: Abnormal Lab Results 12/12/19 12/12/19 Range/Units 06:44 06:44 Immature Gran % (Auto) 0.90 H (0.001-0.429) % Immature Gran # (Auto) 0.08 H (0.000-0.0310) K/mm3 Lymphocytes % 11.9 L (20-51) % Monocytes % 10.0 H (0.0-9) % Neutrophils # 6.6 H (1.3-6.0) K/mm3 Lymphocytes # 1.04 L (1.5-3.5) k/mm3 Potassium 3.3 L D (3.4-4.6) mmol/L Random Glucose 160 H (70-110) mg/dL Calcium Adj for Albumin 8.3 L (8.4-10.2) mg/dL Total Bilirubin 2.4 H (0.0-1.1) mg/dL Alkaline Phosphatase 47 L (50-170) U/L Albumin 3.1 L (3.4-5.0) gm/dl - Exam Constitutional: Present: Alert, Cooperative, No distress ENT Exam: Present: other - NG tube in place Respiratory: Present: normal breath sounds, no respiratory distress Cardiovascular/Chest: Present: regular rate, rhythm, tachycardia Abdomen: Present: Normal bowel sounds, obese, hernia - multiple Extremity: Absent: lower extremity edema Neurologic: Present: normal mood/affect Eye contact: Present: cooperative, good eye contact Assessment/Plan - Problems/Diagnosis (1) Small bowel obstruction Problem: Acute Narrative: Her pain and nausea have resolved, and she is tolerating a clear liquid diet. The NG tube has been clamped since early yesterday afternoon, so will remove the NG and advance her diet. If she is able to tolerate a diet without significant pain, can potentially DC this evening. This is the third time this hernia has resulted in an obstruction, and she'd like something done. Will refer to [facility] surgery on DC. (2) Hypertension Problem: Chronic Qualifiers: Hypertension type: essential hypertension Qualified Code(s): I10 - Essential (primary) hypertension Narrative: BP has been high, but since she had an NG tube to suction, this has been managed via IV labetalol. Home meds are 5 mg amlodipine and 300 mg irbesartan. Will need to substitute losartan for irbesarten while here, and can restart amlodipine. (3) History of pulmonary embolism Problem: Chronic Narrative: She takes 7.5 mg warfarin on MWF, and 5 mg the rest of the week. She's been getting lovenox thus far. Will restart her coumadin. INR pending, added to this morning's labs. (4) GERD (gastroesophageal reflux disease) Problem: Chronic Narrative: restart home famotidine. (5) Abdominal wall hernia Problem: Chronic Narrative: Multiple, and she has recurrent SBOs. She's discussed potential surgical options with one of our surgeons here, who recommended consulting the [facility] if she wanted further intervention. Will refer there with DC orders. (6) History of breast cancer Problem: Resolved
[2019-12-12] MEDS ORDERED: WARFARIN SODIUM 10 MG TABLET PO ONE (09:23)
[2019-12-12] MEDS: ENOXAPARIN SODIUM 40 MG/0.4 ML SYRG SC SCH (09:37)
--- NOTE | 2019-12-12 16:03 | DS ---
(1) Small bowel obstruction Problem: Resolved (2) Hypertension Problem: Chronic Qualifiers: Hypertension type: essential hypertension Qualified Code(s): I10 - Essential (primary) hypertension (3) History of pulmonary embolism Problem: Chronic (4) GERD (gastroesophageal reflux disease) Problem: Chronic (5) Abdominal wall hernia Problem: Chronic (6) History of breast cancer Problem: Resolved (7) Hypokalemia Problem: Acute Date of Discharge:: 12/12/19 Hospital Course: Patient with past medical history of multiple abdominal hernias, hypertension, previous PEs on warfarin, history of breast cancer, presents to the ER with abdominal pain. She had sudden onset around 5:00 the evening prior to admission. This feels similar to other small bowel obstructions she has had in the past. She is having nausea and vomiting. Is not passing gas. Her last bowel movement was the earlier the day she presented to the ED. Work-up in the ED showed small bowel obstruction in the left paraumbilical region and NG tube was placed. Her pain was controlled with IV morphine, and nausea controlled with IV compazine and warfarin. On the afternoon of 12/10, her abdominal pain greatly improved, and her nausea resolved. The NG tube was clamped and clear liquids started. She tolerated this well, and diet was further advanced to low fat on the day of DC. She did not have recurrence in her abdominal pain. She feels like this obstruction cleared fairly quickly because she presented to the ED early in the process. She did have mild hypokalemia on the day of DC, with a potassium of 3.3. Since she was NPO, home meds were held. BP was high, and treated with IV labetalol. Home meds restarted the morning of 12/11, with improvement in her BP and heart rate. Lovenox was substituted for home warfarin. INR on 12/11 was 1, so she was given 10 mg warfarin, replacing her normal Saturday dose of 5 mg. Will ask her to also take 10 mg tomorrow, Saturday, then resume her regimen of 7.5 mg MWF, and 5 mg the rest of the week. She has multiple abdominal hernias, and was referred to general surgery here at [facility]. Due to the extensive nature and multiple hernias, it was recommend she see general surgery at the [facility] if she wanted surgical intervention. She had declined in the past, but now that she has had three obstructions with this same hernia, she would like to see them to discuss surgical options. This referral has been placed with DC orders. Procedures Performed: none Results and Findings: Lab Pending Results 12/09/19 21:55: WBC 8.9, RBC 4.90, Hgb 15.0, Hct 46.3, MCV 94.5, MCH 30.6, MCHC 32.4, RDW 13.5, Plt Count 279, MPV 9.7, Immature Gran % (Auto) 0.50 H, Immature Gran # (Auto) 0.04 H, Neutrophils % 73.2, Lymphocytes % 15.0 L, Monocytes % 9.1 H, Eosinophils % 1.6, Basophils % 0.6, Nucleated RBC % 0.0, Neutrophils # 6.5 H, Lymphocytes # 1.33 L, Monocytes # 0.8, Eosinophils # 0.1, Absolute Basophils 0.1 12/09/19 21:55: Sodium 142, Plasma Sodium 142, Potassium 4.3, Chloride 102, Carbon Dioxide 32.6, Anion Gap 11.7, BUN 21, Creatinine 1.06, Est GFR (Non-Af Amer) 54 L D, BUN/Creatinine Ratio 19.8, Random Glucose 128 H, Calcium 9.9, Calcium Adj for Albumin 9.7, Total Bilirubin 1.0, AST 28, ALT 41, Alkaline Phosphatase 60, Total Protein 7.6, Albumin 3.9, Amylase 39, Lipase 114 12/09/19 21:55: Lactic Acid, Venous 1.8 12/09/19 22:45: Urine Color Yellow, Urine Appearance Clear, Urine pH 7.0, Ur Specific Boomer 1.020, Urine Protein Negative, Urine Glucose (UA) Negative, Urine Ketones 5, Urine Blood Negative, Urine Nitrate Negative, Urine Bilirubin Negative, Urine Urobilinogen Normal, Ur Leukocyte Esterase Negative, Urine RBC None seen, Urine WBC 0-5, Ur Epithelial Cells 0-5, Urine Bacteria 1+ H, Urine Culture Comments No culture indicated 12/12/19 06:44: WBC 8.8, RBC 4.23, Hgb 13.1, Hct 41.0, MCV 96.9, MCH 31.0, MCHC 32.0, RDW 13.7, Plt Count 196, MPV 9.4, Immature Gran % (Auto) 0.90 H, Immature Gran # (Auto) 0.08 H, Neutrophils % 75.0, Lymphocytes % 11.9 L, Monocytes % 10.0 H, Eosinophils % 1.7, Basophils % 0.5, Nucleated RBC % 0.0, Neutrophils # 6.6 H, Lymphocytes # 1.04 L, Monocytes # 0.9, Eosinophils # 0.2, Absolute Basophils 0.0 12/12/19 06:44: Sodium 140, Plasma Sodium 141, Potassium 3.3 L D, Chloride 105, Carbon Dioxide 28.8, Anion Gap 9.5, BUN 10 D, Creatinine 0.57, Est GFR (Non-Af Amer) 111 D, BUN/Creatinine Ratio 17.5, Random Glucose 160 H, Calcium 7.9, Calcium Adj for Albumin 8.3 L, Total Bilirubin 2.4 H, AST 21, ALT 34, Alkaline Phosphatase 47 L, Total Protein 6.2, Albumin 3.1 L 12/12/19 06:44: PT 11.5 H, INR (Anticoag Therapy) 1.17 H Discharge Location: Home Disposition: Home self-care Condition: Good Discharge Activity: Activity as tolerated Discharge Diet: Low fat/chol Referrals: Jayne Toscano DO [Primary Care Provider] - Two Weeks ([facility] multiple abdominal hernias and recurrent small bowel obstructions) Complete Home Medications List: Complete Home Medication List: Aspirin [Aspirin Enteric Coated] 81 mg PO DAILY 10/25/15 Calcium Carbonate/Vitamin D3 [Calcium 600-Vit D3 400 Tablet] 1 ea PO DAILY 10/25/15 Multivitamins [Multivitamin Ki] 1 cap PO DAILY 10/25/15 [place]-3 Fatty Acids [Fish Oil] 1,200 mg PO DAILY 10/25/15 warfarin 5 mg tablet 7.5 mg PO MOWEFR tab 11/24/18 irbesartan 300 mg tablet 300 mg PO DAILY #90 tab 07/14/19 metformin 500 mg tablet 500 mg PO BID #120 tab 10/15/19 DULoxetine HCL [Cymbalta] 30 mg PO DAILY 12/09/19 Famotidine 20 mg PO BID 12/09/19 Metoprolol Tartrate 100 mg PO BID 12/09/19 Pravastatin Sodium 80 mg PO DAILY 12/09/19 Warfarin Sodium [Coumadin] 5 mg PO SUTUTHSA 12/09/19 amLODIPine BESYLATE [Norvasc] 5 mg PO DAILY 12/09/19 Amb Orders for Discharge: Comprehensive Metabolic Panel Time Frame: 1 Week, Facility: [facility], Location: Laboratory Forms: Patient Portal Registration
[2019-12-12 16:41] VITALS: BP 168/81
[2019-12-14] MEDS ORDERED: WARFARIN SODIUM 5 MG TABLET PO SCH (07:34)
== END 2019-12-12 17:30 | disposition home or self-care (01) | DRG 394 ==
LOC: ER 21:01 → MS 12-10 03:10
PROVIDERS: ADMIT Family Medicine; ATTEND Family Medicine
CPT/HCPCS: 36415; 71010; 71045; 74019; 74020; 74177; 80053; 81001; 82150; 83605; 83690; 85025; 85610; 96374; 96375; 96376; 99285; J2405; Q9963; Q9967

== ENCOUNTER 2020-07-26 06:46 | Observation (INO) ==
--- NOTE | 2020-07-06 08:44 | ANES ---
Anesthesia Pre Procedure Eval HOME MEDICATIONS Aspirin [Aspirin Enteric Coated] 81 mg PO DAILY 10/25/15 [Last Taken 11/07/18 08:00] Calcium Carbonate/Vitamin D3 [Calcium 600-Vit D3 400 Tablet] 1 ea PO DAILY 10/25/15 [Last Taken 11/07/18 08:00] Multivitamins [Multivitamin Ki] 1 cap PO DAILY 10/25/15 [Last Taken 11/07/18 08:00] [place]-3 Fatty Acids [Fish Oil] 1,200 mg PO DAILY 10/25/15 [Last Taken 11/07/18 08:00] warfarin 5 mg tablet 7.5 mg PO MOWEFR tab 11/24/18 [Last Taken Unknown] Famotidine 20 mg PO BID 12/09/19 [Last Taken Unknown] amlodipine 5 mg tablet 5 mg PO DAILY #90 tab 03/09/20 [Last Taken Unknown] metoprolol tartrate 100 mg tablet 100 mg PO BID #180 tab 04/14/20 [Last Taken Unknown] pravastatin 40 mg tablet 80 mg PO DAILY #60 tab 04/14/20 [Last Taken Unknown] warfarin 5 mg tablet 5 mg PO SUTUTHSA #90 tab 04/14/20 [Last Taken Unknown] irbesartan 300 mg tablet 300 mg PO DAILY #90 tab 04/27/20 [Last Taken Unknown] alprazolam 0.25 mg tablet 0.25 mg PO BID PRN #30 tab 05/23/20 [Last Taken Unknown] duloxetine 30 mg capsule,delayed release 30 mg PO DAILY #90 cap 06/20/20 [Last Taken Unknown] metformin 500 mg tablet 500 mg PO BID #120 tab 07/04/20 [Last Taken Unknown] Allergies/Adverse Reactions: Allergies Allergy/AdvReac Type Severity Reaction Status Date / Time No Known Allergies Allergy Verified 06/22/20 15:12 - Planned Procedure Planned Procedure: Right Arthroplasty Total Knee Medication List Reviewed:: Yes Allergies Verified: Yes Medical History (Last Reviewed 07/06/20 @ 08:41 by Jevon Rodriguez CRNA) Abnormal computed tomography of abdomen and pelvis (Acute) Hypertension (Chronic) GERD (gastroesophageal reflux disease) (Chronic) Hypernatremia (Acute) Pulmonary embolism (Chronic) Small bowel obstruction (Resolved) Encounter for postoperative care (Acute) 1 week post op LLQ pain (Acute) in the past 3 weeks Abdominal wall hernia (Chronic) History of breast cancer (Resolved) s/p tamoxifen use x few months in 2009 Endometrial thickening on ultrasound (Acute) 1.23 cm with fluid in the endometrial canal Endometrial mass (Acute) 1.51 x 1.05 x 0.94 cm, polypoid, cystic spaces Fracture Onset Date: ~2012 right wrist fracture GERD (gastroesophageal reflux disease) Hypertension Joint pain Knee pain bilateral Thrombosed external hemorrhoid varicose veins Diverticulosis Onset Date: ~10/31/15 Breast cancer Onset Date: ~2009 chemo and radiation DVT (deep venous thrombosis) Onset Date: ~2009 due to Tamoxifen Pain in female pelvis (Resolved) in past 3 weeks Vomiting (Resolved) Surgical History (Last Reviewed 07/06/20 @ 08:41 by Jevon Rodriguez CRNA) History of hysteroscopy Onset Date: ~03/18/18 History of lymph node dissection of right axilla History of tubal ligation Onset Date: ~1993 H/O breast surgery Onset Date: ~11/03/09 double mastectomy H/O colonoscopy Onset Date: ~10/31/152003 & 10/30/18. 04-negative' 16-thrombosed external hemorrhoid, diverticulosis-recheck in 10 years History of appendectomy Onset Date: ~1964 History of exploratory laparotomy Onset Date: ~2013 due to nicked jejunum from lap jonathon History of skin graft Onset Date: ~02/2010 over right breast incision Hx laparoscopic cholecystectomy Onset Date: ~09/2013 S/P mastectomy, bilateral Onset Date: ~2009 Family History (Last Reviewed 07/06/20 @ 08:41 by Jevon Rodriguez CRNA) Mother Hypertension H/O heart bypass surgery Father Cancer kidney - Family Anesthesia History Family History:: no untoward family reactions to anesthesia - Airway/Neck/Teeth Teeth Condition: intact - Respiratory Smoking Status: Never smoker Sleep Apnea currently treated: No Sleep Apnea by current assessment: No - Cardiovascular Cardiac History: hypertension, PVD Tolerate Activity: Fair - Gastrointestinal NPO since: instructed npo after mn - Anesthesia Assessment and Plan ASA Class: PS, III Anesthesia Type Plan: Spinal - adductor canal block Planned difficult intubation/equipment available: No
[~2020-07-26 06:46] MED LIST: BUPIVACAINE HCL/EPINEPHRINE 50 ML VIAL IJ ONE; MIDAZOLAM HCL/PF 5 MG/ML VIAL ONE; MORPHINE SULFATE 15 MG TABLET.SA PO PRN; PROPOFOL VIAL IV ONE; ROPIVACAINE/CLONIDIN/KETOROLAC 50 ML SYRINGE IJ PRN; TRANEXAMIC ACID 1,000 MG in NORMAL SALINE 100 ML IV PRN; VANCOMYCIN/WATER FOR INJ (PEG) 1 GM/200 ML BAG IV PRN; ceFAZolin SODIUM 1 GM VIAL IV PRN
[2020-07-26] MEDS ORDERED: ISOPROPYL ALCOHOL 480 APPL BTL MC ONE (07:20)
[2020-07-26] MEDS ORDERED: ceFAZolin SODIUM 1 GM VIAL ONE (07:20)
[2020-07-26] MEDS: RINGER'S SOLUTION,LACTATED 1,000 ML IV PRN ×2 (07:30→09:35)
[2020-07-26] MEDS ORDERED: ONDANSETRON HCL/PF 2 MG/ML VIAL ONE (09:08)
--- NOTE | 2020-07-26 10:14 | OR ---
Operative Report - Dictated Report Narrative: Date: 07/26/2020 Preoperative diagnosis: Right knee degenerative joint disease. Postoperative diagnosis: Right knee degenerative joint disease. Procedure: Right total knee arthroplasty. Surgeon: Dc Barr M.D. Medical Orderly: Chai Bellamy PA-C (provided and essential set of skilled, educated hands that assisted with transfer, positioning, prepping, draping, manipulation, retraction, placement of jigs, injection, insertion of implants, irrigation, closure wounds, and dressings all of which could not be performed by the available surgical crew) Anesthesia: Spinal with regional block and local periarticular joint injection. LMA Complications: None Specimens: Bone. Estimated blood loss: Minimal. Tourniquet time: 95 minutes at 350 millimeters of mercury. Retained implants: Depuy Attune size 5 narrow right lugged cemented posterior stabilized femoral component. Size 4 fixed-bearing cemented tibial platform. 5 by 10 millimeter posterior stabilized cross-linked tibial insert. 38 millimeter medialized patella button. Indications: Mrs. Perez is a 70-year-old female who has had longstanding right knee pain and arthrosis. This patient was followed in my clinic for period of time with significant complaints of right knee pain consistent with arthritic changes. She had failed conservative measures including, but not limited to, activity modification, passage of time, medications, and other conservative measures. Patient wished to proceed with surgical treatment. The risks, benefits, and alternatives were discussed in clinic. The risks of , blood clots, bleeding, infection, nerve/tendon blood vessel/ injury, malposition of components, intraoperative fracture, postoperative limited range of motion, persistent pain, failure of components, and need for additional procedures. Patient wished to proceed consent was obtained after answering all questions. Procedure: After marking the correct extremity on the floor, the patient was taken to the operating room. A timeout was performed. IV antibiotics consisting of Ancef and vancomycin secondary to a positive MRSA screening were administered prior to the procedure. A regional followed by spinal anesthetic was induced by anesthesia, per my request, on the operative table with all bony prominences well-padded. Pichardo catheter was placed, and a bump was placed under the operative side buttock. SCDs and SANTOS hose were utilized on the nonoperative leg. A well-padded tourniquet was applied to the operative thigh. The operative leg was then pre-scrubbed with alcohol, prepped, and draped in a standard sterile fashion. After exsanguinating the extremity with an Esmarch bandage, the tourniquet was inflated. After marking out the anterior knee for standard incision centered over the patella, the skin was incised and dissected down to the joint retinaculum. The joint retinaculum was marked out as well as the horizontal axis of the patella, and a standard medial parapatellar arthrotomy was then made. The most proximal aspect of the quadriceps tendon and the patella tendon insertion were protected from release. A partial synovectomy was performed as well as a resection of the infrapatellar fat pad. The distal femoral fat pad proximal to the trochlea was also resected using cautery. The soft tissues were elevated off the medial aspect of the proximal tibia using a Gupta elevator ensuring that we did not transect the medial collateral ligament. Upon initial evaluation range of motion was approximately 0 degrees to 120 degrees of flexion. There were signs of advanced arthrosis in the medial, lateral, and patellofemoral joint spaces. There were large marginal osteophytes which were removed with a rongeur. The knee was hyperflexed and the patella was tucked laterally. Protecting the surrounding soft tissues with Homans, an entry drill was placed down the femoral canal using Whitesides line for guidance into the entry point. The intramedullary femoral alignment shanique was utilized in order to cut the distal femur in 5 degrees of valgus resecting 10 millimeters of bone. Next the distal femur was sized to a size 5. A posterior referencing guide was utilized to place the distal femoral cutting block in 3 degrees of external rotation. This was pinned into place. The rotation was confirmed both visually and based on anatomic landmarks. The 4 in 1 cutting jig of the appropriate size was utilized in order to make all bony cuts. The leny wing was used to ensure no notching. Retractors were utilized in order to protect surrounding soft tissues. This cut did not result in any excessive notching. We then cut the box centered over the distal femur. This allowed for resection of the anterior and posterior cruciate ligaments. I then turned my attention to the preparation of the tibia. Using an extra medullary tibial alignment shanique, 3 millimeters of bone was resected off the medial articular surface. This was made perpendicular to the mechanical axis of the joint with the alignment shanique centered over the ankle mortise. The alignment shanique was checked and was noted to be parallel to the mechanical axis, centered over the medial one third of the tibial tubercle, paralleling the anterior surface of the tibia. We then turned our attention to the remaining meniscus and soft tissues. These were removed while protecting the surrounding ligaments and soft tissues. The marginal osteophytes off the anterior, posterior, medial, lateral aspects of the femur and tibia were removed. The tibia was sized out to a size 4. Next the tibia was drilled and punched in an externally rotated position. Next the trial femur and a series of tibial inserts were utilized in order to allow for full extension and maximal flexion. It was found that a 10 millimeter insert gave the best range of motion and stability at multiple flexion points as well as at full extension there was less than 2 mm of gapping both medially and laterally. There is minimal anterior translation with the knee at 90 degrees of flexion and no signs of being able to dislocate the knee. The patella was then prepared. The initial thickness was 23 millimeters. This was reamed down to 13 millimeters parallel to the anterior surface of the patella. It was sized out to a size 38 medialized patella button. This was then drilled and trialed. Without any medial restraint the patella tracked appropriately and did not sublux or dislocate. At this point, it was felt these were the appropriate sized implants, and all trials were removed. The standard periarticular joint injection consisting of ropivacaine, Toradol, and epinephrine were injected into the periarticular joint tissues. The bony surfaces were thoroughly irrigated with a pulsatile-suction saline irrigation device. A bone plug from the prior resected anterior chamfer cut was placed into the drill hole at the distal femur. The bony surfaces were then dried in preparation for placement of the implants. The cement was vacuum mixed per the sewing machine operator paper bags's instructions. The cement was placed on the dry bony surfaces and posterior aspect of the implants. The implants were impacted into place, removing all extruded cement. At this point anesthesia administered tranexamic acid per protocol intravenously. The knee was placed in extension with axial loading with the trial insert while the cement cured. Once the cement cured, all remaining extruded cement was removed. The knee was placed through a range of motion with the trial insert to ensure appropriate range of motion and stability. Final range of motion was approximately 0 to 120 degrees. The knee was again thoroughly irrigated with pulsatile saline lavage. The final polyethylene insert was then impacted into place ensuring no retained soft tissues. The remaining periarticular joint injection was injected. A medium Hemovac drain was placed exiting superior laterally. The knee was then placed over a triangle and the arthrotomy was closed with interrupted #1 Vicryl after thoroughly irrigating the joint. The deep and subcutaneous tissues were closed with interrupted 0 and 3-0 Vicryl respectively. Skin was closed with a running subcutaneous 3-0 Monocryl and Prineo Dermabond dressing. 4 x 4's, Sof-Rol, and a full leg Ariel wrap were applied. All sponge, needle, blade, and instrument counts were correct prior to closing the wounds. Postoperative condition: The patient was awoken and transferred to the postane sthesia care unit in stable condition. Plan is to be admitted to the inpatient medical/surgical floor postoperatively for 24 hours of IV antibiotics, physical therapy, occupational therapy, and medical comanagement. Patient will be weightbearing as tolerated with range of motion as tolerated. DVT prophylaxis will be with SCDs, SANTOS hose, and pharmacological anticoagulation. Anticipated hospital stay is approximately 1-3 days.
[2020-07-26] MEDS ORDERED: RINGER'S SOLUTION,LACTATED 1,000 ML IV PRN (10:15)
[2020-07-26] MEDS ORDERED: MORPHINE SULFATE 2 MG/ML DISP.SYRIN IV PRN (10:15)
[2020-07-26] MEDS ORDERED: ONDANSETRON HCL/PF 2 MG/ML VIAL IV PRN (10:15)
[2020-07-26] MEDS ORDERED: KETOROLAC TROMETHAMINE 15 MG/ML VIAL IV SCH (10:15)
[2020-07-26] MEDS ORDERED: MAG HYDROX/ALUMINUM HYD/SIMETH 30 ML UDC PO PRN (10:15)
[2020-07-26] MEDS ORDERED: MAGNESIUM HYDROXIDE 30 ML UDC PO PRN (10:15)
[2020-07-26] MEDS ORDERED: diphenhydrAMINE HCL 50 MG/ML VIAL IV PRN (10:15)
[2020-07-26] MEDS ORDERED: ACETAMINOPHEN 500 MG TABLET PO PRN (10:15)
[2020-07-26] MEDS ORDERED: ZOLPIDEM TARTRATE 5 MG TABLET PO PRN (10:15)
--- NOTE | 2020-07-26 10:54 | ANES ---
Anesthesia Procedure Note Procedure Note: ANESTHESIA PROCEDURE NOTE Date of Procedure: 07/26/2020 Time of procedure: 8:15 AM. Performed by: JOCELIN Dao CRNA, MSN Waistband Setter: Deja Jennings RN. Preprocedure diagnosis: Post right total knee arthroplasty pain. Post procedure diagnosis: Same. Procedure: Right adductor Canal Block. Indications: Post right total knee arthroplasty pain relief. Findings: See below. Details of the procedure: The patient was brought to OR #4 and placed in supine position. The patient's right femoral area to the knee was prepped with chlorhexidine and using ultrasound guidance the right femoral artery and nerve was identified and then followed to the level of the adductor canal. Lidocaine 1% was infiltrated to the skin of the intended injection site. Under ultrasound guidance the saphenous nerve was approached with visualization of a 4 inch shielded block needle. Once saphenous nerve was identified with proximity to the needle tip, the saphenous nerve was surrounded with 30 mL bupivacaine 0.25% with 1-200,000 epinephrine. Please see radiology/ultrasound report for details and retained images of the procedure. EBL: 0 Fluids: N/A. Specimen: N/A. Post procedure condition: The patient tolerated the procedure well. No complications were noted. Thank you for this consultation. Eder Polk CRNA, ARNP, MSN
--- NOTE | 2020-07-26 10:54 | ANES ---
Post Anesthesia Discharge - Transfer of Care Transfer of Care handoff given to nurse: Yes - Discharge from PACU Discharge from PACU when meets criteria: Yes - Comfortable.
--- NOTE | 2020-07-26 11:14 | ANES ---
Post Anesthesia Assessment - Vital Signs Vitals: Last Vital Signs Temp 37.3 C 07/26/20 11:05 Pulse 65 07/26/20 11:05 Resp 18 07/26/20 11:05 BP 169/74 H 07/26/20 11:05 Pulse Ox 98 07/26/20 11:05 Airway Patency: Normal - Mental Status Level Of Consciousness: Awake, Alert, Appropriate - Pain Level Pain Score: 0 - N/V Assessment Nausea/Vomiting Presence: None Dehydration:: No
[2020-07-26] MEDS: oxyCODONE HCL/ACETAMINOPHEN 1 TAB TABLET PO PRN (13:43)
[2020-07-26] MEDS ORDERED: oxyCODONE HCL/ACETAMINOPHEN 1 TAB TABLET PO PRN (16:45)
[2020-07-26] MEDS: metFORMIN HCL 500 MG TABLET PO SCH (16:50)
[2020-07-26] MEDS ORDERED: WARFARIN SODIUM 5 MG TABLET PO SCH (17:00)
[2020-07-26] MEDS ORDERED: VANCOMYCIN/WATER FOR INJ (PEG) 1 GM/200 ML BAG IV SCH (20:15)
[2020-07-26] MEDS: METOPROLOL TARTRATE 100 MG TABLET PO SCH (20:23)
[2020-07-26] MEDS: FAMOTIDINE 20 MG TABLET PO SCH (20:24)
[2020-07-26] MEDS ORDERED: ROSUVASTATIN CALCIUM 10 MG TABLET PO SCH (21:00)
[2020-07-26] MEDS ORDERED: SENNOSIDES/DOCUSATE SODIUM 1 TAB TABLET PO SCH (21:00)
[2020-07-27] MEDS: oxyCODONE HCL/ACETAMINOPHEN 1 TAB TABLET PO PRN ×2 (03:50→09:54)
[2020-07-27 06:24] LABS: Hemoglobin 11.9 gm/dL (12.5-16.0); Mean Corpuscular Hemoglobin 30.8 pg (27-31); Mean Corpuscular Hgb Conc 30.5 g/dl (32-36); Mean Platelet Volume 9.8 fl (8-12.5); Platelet Count 197 K/mm3 (150-450); Red Blood Count 3.86 M/mm3 (4.2-5.4); White Blood Count 8.3 K/mm3 (4.0-10.5)
[2020-07-27 06:32] LABS: Anion Gap 7.8 mmol/L (6.8-13.8); BUN/Creatinine Ratio 19.3 (9.0-21.6); Calcium * 8.5 mg/dL (7.9-10.9); Carbon Dioxide 30.8 mmol/L (24-32.6); Estimated Creat Clear 53.3; Potassium 4.6 mmol/L (3.4-4.6)
[2020-07-27] MEDS ORDERED: CALCIUM CARBONATE/VITAMIN D3 1 TAB TABLET PO SCH (09:00)
[2020-07-27] MEDS ORDERED: DULoxetine HCL 30 MG CAPSULE.SA PO SCH (09:00)
[2020-07-27] MEDS ORDERED: amLODIPine BESYLATE 5 MG TABLET PO SCH (09:00)
[2020-07-27] MEDS ORDERED: MULTIVITAMINS 1 CAP CAPSULE PO SCH (09:00)
[2020-07-27] MEDS ORDERED: LOSARTAN POTASSIUM 50 MG TABLET PO SCH (09:00)
[2020-07-27] MEDS ORDERED: OMEGA-3 FATTY ACIDS 1 CAP CAPSULE PO SCH (09:00)
[2020-07-27] MEDS: FAMOTIDINE 20 MG TABLET PO SCH (09:50)
[2020-07-27] MEDS: metFORMIN HCL 500 MG TABLET PO SCH (09:50)
[2020-07-27] MEDS: METOPROLOL TARTRATE 100 MG TABLET PO SCH (09:51)
--- NOTE | 2020-07-27 11:52 | DS ---
(1) Status post total right knee replacement Problem: Acute Date of Discharge:: 07/27/20 Hospital Course: 68-year-old female postop day 1 status post right total knee arthroplasty. Patient was admitted postoperatively to monitor for acute complications, pain control, p.o. diet, PT/OT goals. At this time she is met all of her PT OT goals to be discharged home. Patient has returned to p.o. diet without significant complication. Her pain is well controlled p.o. pain medications. She otherwise has had no complications and an uneventful stay. Patient's exam today reveals right lower extremity--> sensation intact to light touch, 5/5 plantar flexion dorsiflexion, dressings clean/dry/intact, diffuse mild tenderness about right knee. Patient will otherwise continue with the following recommendations: -Weightbearing as tolerated assistive device as needed -PT/OT progress as tolerated per protocol -P.o. diet as tolerated -P.o. pain medication as needed as prescribed -DVT prophylaxis: Restart on Coumadin continued monitoring with PCP -Monitor pernio dressing for any acute drainage or erythema -Follow-up with orthopedic outpatient clinic at 3 weeks postop -Disposition: Discharge home with self-care, outpatient PT Procedures Performed: see notes below List Procedures: Status post right total knee arthroplasty Results and Findings: Lab Pending Results 07/27/20 06:20: WBC 8.3, RBC 3.86 L, Hgb 11.9 L, Hct 39.0, MCV 101.0 H, MCH 30.8, MCHC 30.5 L, RDW 13.0, Plt Count 197, MPV 9.8 07/27/20 06:20: Sodium 138, Plasma Sodium 139, Potassium 4.6, Chloride 104, Carbon Dioxide 30.8, Anion Gap 7.8, BUN 16, Creatinine 0.83, Est GFR (Non-Af Amer) 72, BUN/Creatinine Ratio 19.3, Random Glucose 138 H, Calcium 8.5 Discharge Location: Home Disposition: Home self-care Condition: Stable Discharge Activity: Weight bearing - Assistive ice as needed Discharge Diet: General/regular food Referrals: Jayne Toscano DO [Primary Care Provider] - Problem Oriented Discharge Instructions to Patient/Family: Total Knee Replacement, Care After, [id number] Language (Chinese or Faroese Available): Chinese Additional Patient Instructions (free text): Call [facility] [place] to confirm appointment date and time. July 28 at 11:30 am. Please fax demographics and PT order to [phone]. Follow up [facility] Orthopedic office appointment on SaturdayAugust 15 at 9:30am. Prescriptions (Any new or edited meds): oxyCODONE HCL/ACETAMINOPHEN [Percocet 5 MG/325 MG] 1 - 2 tab PO Q4H PRN #50 tab PRN Reason: Moderate Pain (Pain Scale 4-6) Transmission Status: Sent to [facility] #[id number] Sennosides/Docusate Sodium [Senokot-S] 2 tab PO HS #60 tab Transmission Status: Pending to [facility] #[id number] Complete Home Medications List: Complete Home Medication List: Aspirin [Aspirin Enteric Coated] 81 mg PO DAILY 10/25/15 Calcium Carbonate/Vitamin D3 [Calcium 600-Vit D3 400 Tablet] 1 ea PO DAILY 10/25/15 Multivitamins [Multivitamin Ki] 1 cap PO DAILY 10/25/15 [place]-3 Fatty Acids [Fish Oil] 1,200 mg PO DAILY 10/25/15 warfarin 5 mg tablet 7.5 mg PO SUTUTHSA tab 11/24/18 Famotidine 20 mg PO BID 12/09/19 amlodipine 5 mg tablet 5 mg PO DAILY #90 tab 03/09/20 metoprolol tartrate 100 mg tablet 100 mg PO BID #180 tab 04/14/20 irbesartan 300 mg tablet 300 mg PO DAILY #90 tab 04/27/20 duloxetine 30 mg capsule,delayed release 30 mg PO DAILY #90 cap 06/20/20 metformin 500 mg tablet 500 mg PO BID #120 tab 07/04/20 Warfarin Sodium 5 mg PO MOWEFR 07/06/20 pravastatin 40 mg tablet 80 mg PO DAILY #60 tab 07/25/20 Sennosides/Docusate Sodium [Senokot-S] 2 tab PO HS #60 tab 07/27/20 oxyCODONE HCL/ACETAMINOPHEN [Percocet 5 MG/325 MG] 1 - 2 tab PO Q4H PRN #50 tab 07/27/20 Amb Orders for Discharge: PT Evaluation and Treatment* Location: None Selected Forms: Patient Portal Registration
[2020-07-27 12:45] VITALS: BP 176/69
[2020-07-27] MEDS ORDERED: WARFARIN SODIUM 10 MG TABLET PO SCH (17:00)
[2020-07-29] MEDS ORDERED: WARFARIN SODIUM 5 MG TABLET PO SCH (17:00)
== END 2020-07-27 13:54 | disposition home or self-care (01) ==
LOC: SUR 06:46 → MS 06:46
PROVIDERS: ADMIT Orthopaedic Surgery; ATTEND Orthopaedic Surgery